=== PATIENT | female | born 1965 | race Caucasian/White ===

== ENCOUNTER 2016-10-11 08:23 | Observation (INO) | payer SELFPAY ==
[~2016-10-11] VITALS: Ht 160 cm; Wt 58.4 kg
[2016-10-11] VITALS (7 sets, daily range): BP systolic 93–131; BP diastolic 50–85; PULSE 52–71; RESP 16–18; TEMP 97.6–98.2; O2SAT 96–100
[~2016-10-11 08:23] MED LIST: ONDA1TAB16 SL; Z.0.NO CURRENT MEDS
[2016-10-11] MEDS ORDERED: SOMA250T PO (08:40)
[2016-10-11] MEDS ORDERED: DIAZ2 PO (08:40)
[2016-10-11] MEDS ORDERED: HYDR-3111 PO (08:40)
[2016-10-11] MEDS ORDERED: ONDANSETRON HCL 4 MG/2 ML VIAL IV PUSH ONE ×2 (09:00→15:45)
--- NOTE | 2016-10-11 09:23 | PD ---
HPI Chief Complaint: Abdominal Pain Time Seen by Provider: 08:40 Travel History International Travel<30 days: Yes Contact w/Intl Traveler<30days: Yes Name of Country Traveled to: [facility] [place] 1 WEEK AGO Traveled to known affect area: No History of Present Illness HPI 50yo F with no PMH presents to the ED with c/o right sided abdominal pain for 1 week. States she was at a resort in [place] and they started her on ciprofloxacin. Pt states she has had similar pain before intermittently for 7- 8 months. Never had imaging. +Nausea. Denies any fever, vomiting, dysuria, hematuria, diarrhea, chest pain, sob, focal weakness or numbness, vaginal bleeding. Pt has not had menstrual period for 2 years. PSH cholecystectomy. PFSH Past Medical History Fibromyalgia: Yes Musculoskeletal: Yes ("bulging discs") Migraines: Yes Tetanus Vaccination: Unknown ?: Not Menopausal: Yes Tubal Ligation: Yes Past Surgical History Cholecystectomy: Yes Gynecologic Surgery: Yes (breast implants) Social History Alcohol Use: Yes (2-3 x/ month) Tobacco Use: No Substance Use: No Allergies-Medications (Allergen,Severity, Reaction): Coded Allergies: Codeine (Verified Allergy, Mild, ITCHING, 10/11/16) Reported Meds & Prescriptions Reported Meds & Active Scripts Active Reported Valium (Diazepam) 2 Mg Tab Unknown Dose PO BID PRN Soma (Carisoprodol) 250 Mg Tab 150 Mg PO QID PRN Vicodin (Hydrocodone-Acetaminophen) 5-300 Mg Tab 1 Tab PO Q4H PRN Review of Systems Except as stated in HPI: all other systems reviewed are Neg Physical Exam Narrative GENERAL: 50yo F in mild distress. SKIN: Focused skin assessment warm/dry. HEAD: Atraumatic. Normocephalic. CARDIOVASCULAR: Regular rate and rhythm. No murmur appreciated. RESPIRATORY: No accessory muscle use. Clear to auscultation. Breath sounds equal bilaterally. GASTROINTESTINAL: Abdomen soft, +TTP RUQ, RLQ, right flank. Suprapubic region. PELVIC: Small amount of white vaginal discharge, looks physiologic. No bleeding. No CMT tenderness. No adnexal mass palpated. BACK: CVA tenderness on right. MUSCULOSKELETAL: No obvious deformities. No clubbing. No cyanosis. No edema. NEUROLOGICAL: Awake and alert. No obvious cranial nerve deficits. Motor grossly within normal limits. Normal speech. PSYCHIATRIC: Appropriate mood and affect; insight and judgment normal. Data Data Last Documented VS Vital Signs Date Time Temp Pulse Resp B/P Pulse Ox O2 Delivery O2 Flow Rate FiO2 10/11/16 13:00 54 16 119/58 98 Room Air 10/11/16 08:25 98.2 Orders Complete Blood Count With Diff (10/11/16 08:49) Comprehensive Metabolic Panel (10/11/16 08:49) Lipase (10/11/16 08:49) Prothrombin Time / Inr (Pt) (10/11/16 08:49) Act Partial Throm Time (Ptt) (10/11/16 08:49) Urinalysis - C+S If Indicated (10/11/16 08:49) Ct Abd/Pel W Iv Contrast(Rout) (10/11/16 08:49) Ondansetron Inj (Zofran Inj) (10/11/16 09:00) Morphine Inj (Morphine Inj) (10/11/16 09:30) Iohexol 350 Inj (Omnipaque 350 Inj) (10/11/16 11:36) Morphine Inj (Morphine Inj) (10/11/16 13:00) Gc And Chlamydia Pcr (10/11/16 13:02) Wet Prep Profile (10/11/16 13:02) Us Pelvis Comp W Transvaginal (10/11/16 ) Ondansetron Inj (Zofran Inj) (10/11/16 15:45) Prochlorperazine Inj (Compazine Inj) (10/11/16 16:30) (Nf) Carisoprodol (Soma) (10/11/16 16:30) Place In Observation (10/11/16 ) Code Status (10/11/16 16:24) Vital Signs (Adult) Q4H (10/11/16 16:24) Activity Oob Ad Batsheva (10/11/16 16:24) Intake + Output MALINDA.QSHIFT (10/11/16 16:24) Notify Dr: Other (10/11/16 16:24) Sodium Chlor 0.9% 1000 Ml Inj (Ns 1000 M (10/11/16 16:24) Sodium Chloride 0.9% Flush (Ns Flush) (10/11/16 16:30) Sodium Chloride 0.9% Flush (Ns Flush) (10/11/16 21:00) Acetaminophen (Tylenol) (10/11/16 16:30) Ondansetron Inj (Zofran Inj) (10/11/16 16:30) Complete Blood Count With Diff (10/12/16 06:00) Creatine Kinase (Cpk) (10/11/16 16:24) Creatine Kinase (Cpk) (10/11/16 22:24) Troponin I (10/11/16 16:24) Troponin I (10/11/16 22:24) Scd Bilateral/Knee High MALINDA.BID (10/11/16 16:24) Naloxone Inj (Narcan Inj) (10/11/16 16:30) Docusate Sodium-Senna (Dyan-Colace) (10/11/16 21:00) Magnesium Hydroxide Liq (Milk Of Magnesi (10/11/16 16:30) Sennosides (Senokot) (10/11/16 16:30) Bisacodyl Supp (Dulcolax Supp) (10/11/16 16:30) Lactulose Liq (Lactulose Liq) (10/11/16 16:30) Pantoprazole Inj (Protonix Inj) (10/11/16 21:00) Sucralfate Liq (Carafate Liq) (10/11/16 21:00) Admit Order (Ed Use Only) (10/11/16 16:25) Consult Gastroenterology (10/11/16 ) Drug Screen, Random Urine (10/11/16 16:26) Labs Laboratory Tests Test 10/11/16 10/11/16 10/11/16 10/11/16 01:36 09:00 09:10 13:17 Total Creatine Kinase 48 U/L Troponin I LESS THAN 0.02 NG/ML White Blood Count 6.4 TH/MM3 Red Blood Count 4.88 MIL/MM3 Hemoglobin 14.2 GM/DL Hematocrit 42.8 % Mean Corpuscular Volume 87.7 FL Mean Corpuscular Hemoglobin 29.2 PG Mean Corpuscular Hemoglobin 33.3 % Concent Red Cell Distribution Width 13.4 % Platelet Count 286 TH/MM3 Mean Platelet Volume 8.0 FL Neutrophils (%) (Auto) 58.8 % Lymphocytes (%) (Auto) 29.5 % Monocytes (%) (Auto) 7.2 % Eosinophils (%) (Auto) 3.7 % Basophils (%) (Auto) 0.8 % Neutrophils # (Auto) 3.8 TH/MM3 Lymphocytes # (Auto) 1.9 TH/MM3 Monocytes # (Auto) 0.5 TH/MM3 Eosinophils # (Auto) 0.2 TH/MM3 Basophils # (Auto) 0.1 TH/MM3 CBC Comment DIFF FINAL Differential Comment Prothrombin Time 10.8 SEC Prothromb Time International 1.0 RATIO Ratio Activated Partial 28.0 SEC Thromboplast Time Sodium Level 141 MEQ/L Potassium Level 4.1 MEQ/L Chloride Level 107 MEQ/L Carbon Dioxide Level 25.7 MEQ/L Anion Gap 8 MEQ/L Blood Urea Nitrogen 16 MG/DL Creatinine 0.78 MG/DL Estimat Glomerular Filtration 78 ML/MIN Rate Random Glucose 82 MG/DL Calcium Level 8.6 MG/DL Total Bilirubin 0.5 MG/DL Aspartate Amino Transf 48 U/L (AST/SGOT) Alanine Aminotransferase 52 U/L (ALT/SGPT) Alkaline Phosphatase 95 U/L Total Protein 6.5 GM/DL Albumin 3.6 GM/DL Lipase 226 U/L Urine Color LIGHT-YELLOW Urine Turbidity CLEAR Urine pH 5.5 Urine Specific [place] 1.008 Urine Protein NEG mg/dL Urine Glucose (UA) NEG mg/dL Urine Ketones NEG mg/dL Urine Occult Blood NEG Urine Nitrite NEG Urine Bilirubin NEG Urine Urobilinogen LESS THAN 2.0 MG/DL Urine Leukocyte Esterase NEG Urine RBC LESS THAN 1 /hpf Urine WBC 1 /hpf Urine Squamous Epithelial 2 /hpf Cells Urine Bacteria RARE /hpf Urine Mucus FEW /lpf Microscopic Urinalysis Comment CULT NOT INDICATED Urine Opiates Screen NEG Urine Barbiturates Screen NEG Urine Amphetamines Screen NEG Urine Benzodiazepines Screen POS Urine Cocaine Screen NEG Urine Cannabinoids Screen POS Clue Cells (Wet Prep) NONE SEEN Vaginal Trichomonas (Wet Prep) NONE SEEN Vaginal Yeast (Wet Prep) NONE SEEN Chlamydia trachomatis DNA NOT DETECTED (PCR) Neisseria gonorrhoeae DNA NOT DETECTED (PCR) MDM Medical Decision Making Medical Screen Exam Complete: Yes Emergency Medical Condition: Yes Differential Diagnosis pyelonephritis vs. colitis vs. IBS vs. appendicitis vs. nephrolithiasis Narrative Course 50yo F with right sided abdominal pain for 1 week. Pt has had similar pain on and off for 7-8 months. Abdomen is soft, but pt is tender more in the right flank area so morphine and zofran given. Labs reviewed, no leukocytosis. AST mildly elevated. Lipase normal. UA negative. CTa/p showed a dilated tubular structure in right adnexa, probably hydrosalpinx. Tubo ovarian abscess cannot be excluded although no significant inflammatory changes. Appendix not definitely visualized but no inflammatory changes adjacent to cecum. No free air or free fluid. No bowel obstruction. Mild intrahepatic and extrahepatic bile or ductal dilation. Distal common bile duct 9mm in maximum diameter. I discussed with GI Dr. Martínez who states she can follow up as outpatient, likely needs MRCP. Normal bilirubin. Ordered mandatory referral for GI. Pt' s pain is not epigastric but more right of umbilicus. Pelvic exam performed and there is a small amount of white vaginal discharge, appears physiologic. Wet prep negative. US pelvis normal. Pain improved with morphine. Upon discharge, pt started vomiting and given zofran. Vomit is green. Pt reevaluated after zofran and is still vomiting. Ordered compazine. Will admit for intractable vomiting and GI consult. Discussed with Dr. Hart and accepted to his service. Diagnosis Primary Impression: Intractable vomiting Qualified Code: R11.2 - Intractable vomiting with nausea, unspecified vomiting type Admitting Information Admitting Physician Requests: Observation Additional Instructions: Please follow up with GI or [facility] as an outpatient. Med/Other Pt SpecificInfo: No Change to Meds Gail Mae DO Oct 11, 2016 09:23
[2016-10-11 09:25] LABS: AUTOMATED NEUTROPHIL # 3.8 TH/MM3 (1.8-7.7); BASOPHIL # 0.1 TH/MM3 (0-0.2); BASOPHIL % 0.8 % (0.0-2.0); EOSINOPHIL # 0.2 TH/MM3 (0-0.4); EOSINOPHIL % 3.7 % (0.0-4.0); HEMATOCRIT 42.8 % (35.0-46.0); HEMO FLAGS DIFF FINAL; LYMPH % 29.5 % (9.0-44.0); LYMPHOCYTE # 1.9 TH/MM3 (1.0-4.8); MEAN CELL VOLUME 87.7 FL (80.0-100.0); MEAN CORPUSCULAR HEMOGLOBIN 29.2 PG (27.0-34.0); MEAN CORPUSCULAR HGB CONC 33.3 % (32.0-36.0); MONO % 7.2 % (0.0-8.0); NEUT % 58.8 % (16.0-70.0); PLATELET COUNT 286 TH/MM3 (150-450); RED BLOOD COUNT 4.88 MIL/MM3 (4.00-5.30); RED CELL DISTRIBUTION WIDTH 13.4 % (11.6-17.2); WHITE BLOOD COUNT 6.4 TH/MM3 (4.0-11.0)
[2016-10-11] MEDS ORDERED: MORPHINE SULFATE 8 MG/ML INJ IV PUSH ONE (09:30)
[2016-10-11 09:38] LABS: PROTHROMBIN TIME - PATIENT 10.8 SEC (9.8-11.6)
[2016-10-11 09:50] LABS: ANION GAP 8 MEQ/L (5-15); AST (GOT) 48 U/L (15-37); BICARBONATE 25.7 MEQ/L (21.0-32.0); BLOOD UREA NITROGEN 16 MG/DL (7-18); CHLORIDE 107 MEQ/L (98-107); GLOMERULAR FILTRATION RATE 78 ML/MIN (>89); POTASSIUM 4.1 MEQ/L (3.5-5.1); SODIUM (NA) 141 MEQ/L (136-145)
[2016-10-11 09:51] LABS: ALT (GPT) 52 U/L (10-53)
[2016-10-11 09:52] LABS: BACTERIA, URINE RARE /hpf; BLOOD, URINE NEG (NEG); COMMENT (UR) CULT NOT INDICATED; CULTURE IF INDICATED CULT NOT INDICATED; GLUCOSE,URINE NEG (NEG); KETONE, URINE NEG (NEG); MUCUS URINE FEW /lpf (OCC); NITRITE,URINE NEG (NEG); PH, URINE 5.5 (5.0-8.5); SQUAMOUS EPITHELIAL CELL URINE 2 /hpf (0-5); URINE COLOR LIGHT-YELLOW (YELLW/STRAW)
[2016-10-11 09:53] LABS: ALKALINE PHOSPHATASE 95 U/L (45-117); TOTAL BILIRUBIN ADULT 0.5 MG/DL (0.2-1.0)
[2016-10-11] MEDS ORDERED: IOHEXOL 350 MG/ML 10 ML VIAL (for RAD DIAG) IV ONE (11:36)
--- NOTE | 2016-10-11 12:25 | RADRPT ---
EXAM DATE/TIME: 10/11/2016 11:35 [facility] COMPARISON: No previous studies available for comparison. INDICATIONS : Right lower quadrant pain, nausea, vomiting and loss of appetite. IV CONTRAST: 96 cc Omnipaque 350 (iohexol) IV ORAL CONTRAST: No oral contrast ingested. RADIATION DOSE: 4.81 CTDIvol (mGy) MEDICAL HISTORY : None SURGICAL HISTORY : Tubal ligation. Breast implants ENCOUNTER: Initial ACUITY: 1 day PAIN SCALE: 10/10 LOCATION: Right lower quadrant abdomen TECHNIQUE: Volumetric scanning of the abdomen and pelvis was performed. Using automated exposure control and ad justment of the mA and/or kV according to patient size, radiation dose was kept as low as reasonably achievable to obtain optimal diagnostic quality images. FINDINGS: The limited portion of the lung base visualized is clear. There is mild prominence of the intrahepatic biliary system. The patient is post cholecystectomy. The distal common bile but measures 9 mm in maximum dimension. No mass is seen within the hepatic parenc hyma. The spleen, pancreas, adrenal glands and kidneys are within normal limits. The abdominal aorta is normal in caliber. No retroperitoneal adenopathy is identified. The visualized loops of small and large bowel in the upper abdomen are unremarkable. Imaging through the pelvis demonstrates a dilated tubular structure in the right adnexa suggesting hy drosalpinx. No free fluid is seen within the pelvis. No iliac or inguinal adenopathy is present. The visualized bony structures are grossly intact. CONCLUSION: 1. There is a dilated tubular structure in the right adnexa probably representing a hydrosalpinx. Tub o-ovarian abscess cannot be excluded however I do not see significant inflammatory changes. 2. The appendix is not definitively visualized however, there are no inflammatory changes adjacent to cecum. 3. No free air or free fluid identified. No findings to indicate bowel obstruction. 4. Mild intrahepatic and extrahepatic bile or ductal dilation. Curt Ventura MD on October 11, 2016 at 12:17 Board Certified Radiologist. This report was verified electronically.
[2016-10-11] MEDS ORDERED: MORPHINE SULFATE 4 MG/ML INJ IV PUSH ONE (13:00)
--- NOTE | 2016-10-11 14:05 | RADRPT ---
EXAM DATE/TIME: 10/11/2016 13:24 [facility] COMPARISON: No previous studies available for comparison. INDICATIONS : Abscess. Right adnexal mass seen on CT. Right pelvic pain. MEDICAL HISTORY : Alzheimer's Right pelvic pain. SURGICAL HISTORY : Cholecystectomy. ENCOUNTER: Initial ACUITY: 1 week PAIN SCORE: 3/10 LOCATION: Bilateral pelvis MEASUREMENTS: UTERUS: 6.7 x 3.9 x 2.6 cm ENDOMETRIAL STRIPE: 3 mm RIGHT OVARY: 1.2 x 3.0 x 1.4 cm LEFT OVARY: 2.7 x 1.4 x 1.7 cm FINDINGS: UTERUS: The myometrium has homogeneous echotexture without mass. Nabothian cysts noted. RIGHT OVARY: Ovary contains no mass or significant cystic lesion. Dominant follicle measures 8 mm. LEFT OVARY: Ovary contains no mass or significant cystic lesion. MISCELLANEOUS: No free fluid. CONCLUSION: 1. Normal pelvic sonogram. Jesus White MD on October 11, 2016 at 14:02 Board Certified Radiologist. This report was verified electronically.
[2016-10-11 16:25] LABS: CHLAMYDIA PCR NOT DETECTED (NOT DETECT); NEISSERIA PCR NOT DETECTED (NOT DETECT)
[2016-10-11] MEDS ORDERED: PROCHLORPERAZINE INJ 10 MG/2 ML VIAL IV PUSH ONE (16:30)
[2016-10-11] MEDS ORDERED: BISACODYL 10 MG SUPP RECTAL PRN (16:30)
[2016-10-11] MEDS ORDERED: CARISOPRODOL PO PRN (16:30)
[2016-10-11] MEDS ORDERED: ONDANSETRON HCL 4 MG/2 ML VIAL IVP PRN (16:30)
[2016-10-11] MEDS ORDERED: SENNOSIDES 8.6 MG TAB PO PRN (16:30)
[2016-10-11] MEDS ORDERED: NALOXONE HCL 0.4 MG/ML AMP IV PRN (16:30)
[2016-10-11] MEDS ORDERED: ACETAMINOPHEN 325 MG TAB PO PRN (16:30)
[2016-10-11] MEDS ORDERED: MAGNESIUM HYDROXIDE SUSP 30 ML CUP PO PRN (16:30)
[2016-10-11] MEDS ORDERED: LACTULOSE SYRUP 20 GM/30 ML CUP PO PRN (16:30)
[2016-10-11] MEDS ORDERED: SODIUM CHLORIDE 0.9% FLUSH 10 ML FLUSH IV FLUSH PRN (16:30)
--- NOTE | 2016-10-11 17:13 | PD.CONS ---
HPI History of Present Illness This is a 50 year old female who presented to the ER for evaluation of nausea/ vomiting/abdominal pain. She has been having intermittent abdominal pain for the past 7 months. This is an intermittent sharp pain in her RLQ that radiates to her back and is aggravated by movement. She also has intermittent nausea, but only occasionally vomits. She has associated chills, but denies any fevers. She denies any heartburn, reflux, diarrhea, constipation, melena, or hematochezia. She seems to get the nausea 2-3 times a week. She can't really say how often she is having the abdominal pain. She originally stated it was intermittent for the past 7 months, but states then stated it was constant, but everyone says there is nothing wrong so she just "lives with it." This latest episode began last Monday while in [place]. She denies any suspicious food or sick contacts. She did not drink the water. She was seen by the resort physician and was started on Cipro. She denies any improvement in her symptoms with the cipro, but states the vomiting did stop. She has not had a menstrual cycle in several years. She had cervical cancer when she was [age] that was treated with cryosurgery. She does report a small amount vaginal discharge since starting cipro, but states she always has a little bit of thick white vaginal discharge while on cipro. Abdomen/Pelvis CT (10/11/16)-----> 1. There is a dilated tubular structure in the right adnexa probably representing a hydrosalpinx. Tubo-ovarian abscess cannot be excluded however I do not see significant inflammatory changes. 2. The appendix is not definitively visualized however, there are no inflammatory changes adjacent to cecum. 3. No free air or free fluid identified. No findings to indicate bowel obstruction. 4. Mild intrahepatic and extrahepatic bile or ductal dilation. Pelvis Ultrasound (10/11/16)----> 1. Normal pelvic sonogram. The patient has a hx of gallstones and underwent a cholecystectomy more than 10 years ago. She takes Naproxen once a day since last week. She denies any history of PUD. PFSH Past Medical History Hx Cervical cancer Fibromyalgia Past Surgical History Tubal ligation Cryosurgery for cervical cancer Tonsillectomy Cholecystectomy ORIF right wrist Breast augmentation Coded Allergies: Codeine (Verified Allergy, Mild, ITCHING, 10/11/16) Medications Allergies Coded Allergies Type Severity Reaction Last Updated Verified Codeine Allergy Mild ITCHING 10/11/16 Yes Active Scripts Medications Dose Route/Sig Days Date Category Valium (Diazepam) 2 Mg Tab Unknown Dose PO BID PRN 10/11/16 Reported Soma (Carisoprodol) 250 Mg Tab 150 Mg PO QID PRN 10/11/16 Reported Vicodin (Hydrocodone-Acetaminophen) 5-300 Mg Tab 1 Tab PO Q4H PRN 10/11/16 Reported Family History Mother had breast and lung cancer. Father from [place] Social History No ETOH. Denies any tobacco use No illicit drugs Review of Systems Constitutional: COMPLAINS OF: Fatigue, Weight loss, Chills, DENIES: Fever Respiratory: DENIES: Cough Cardiovascular: DENIES: Chest pain Gastrointestinal: COMPLAINS OF: Abdominal pain, Nausea, Vomiting, DENIES: Black stools, Bloody stools, Constipation, Diarrhea, Anorexia, Heartburn, Hematemesis Musculoskeletal: COMPLAINS OF: Joint pain, Muscle aches Hematologic/lymphatic: DENIES: Bruising Neurologic: DENIES: Headache Psychiatric: DENIES: Confusion GI Exam Vitals I&O Vital Signs Date Time Temp Pulse Resp B/P Pulse Ox O2 Delivery O2 Flow Rate FiO2 10/11/16 16:30 97.6 68 16 118/58 100 Room Air 10/11/16 13:00 54 16 119/58 98 Room Air 10/11/16 08:40 71 16 120/63 99 Room Air 10/11/16 08:25 98.2 71 18 127/68 99 Imaging Last Impressions Abdomen/Pelvis CT 10/11/16 0849 Signed Impressions: Service Date/Time: Tuesday, October 11, 2016 11:35 - CONCLUSION: 1. There is a dilated tubular structure in the right adnexa probably representing a hydrosalpinx. Tubo-ovarian abscess cannot be excluded however I do not see significant inflammatory changes. 2. The appendix is not definitively visualized however, there are no inflammatory changes adjacent to cecum. 3. No free air or free fluid identified. No findings to indicate bowel obstruction. 4. Mild intrahepatic and extrahepatic bile or ductal dilation. Curt Ventura MD Pelvis Ultrasound 10/11/16 0000 Signed Impressions: Service Date/Time: Tuesday, October 11, 2016 13:24 - CONCLUSION: 1. Normal pelvic sonogram. Jesus F. Tocci, MD Laboratory Test 10/11/16 10/11/16 10/11/16 09:00 09:10 13:17 White Blood Count 6.4 TH/MM3 Red Blood Count 4.88 MIL/MM3 Hemoglobin 14.2 GM/DL Hematocrit 42.8 % Mean Corpuscular Volume 87.7 FL Mean Corpuscular Hemoglobin 29.2 PG Mean Corpuscular Hemoglobin 33.3 % Concent Red Cell Distribution Width 13.4 % Platelet Count 286 TH/MM3 Mean Platelet Volume 8.0 FL Neutrophils (%) (Auto) 58.8 % Lymphocytes (%) (Auto) 29.5 % Monocytes (%) (Auto) 7.2 % Eosinophils (%) (Auto) 3.7 % Basophils (%) (Auto) 0.8 % Neutrophils # (Auto) 3.8 TH/MM3 Lymphocytes # (Auto) 1.9 TH/MM3 Monocytes # (Auto) 0.5 TH/MM3 Eosinophils # (Auto) 0.2 TH/MM3 Basophils # (Auto) 0.1 TH/MM3 CBC Comment DIFF FINAL Differential Comment Prothrombin Time 10.8 SEC Prothromb Time International 1.0 RATIO Ratio Activated Partial 28.0 SEC Thromboplast Time Sodium Level 141 MEQ/L Potassium Level 4.1 MEQ/L Chloride Level 107 MEQ/L Carbon Dioxide Level 25.7 MEQ/L Anion Gap 8 MEQ/L Blood Urea Nitrogen 16 MG/DL Creatinine 0.78 MG/DL Estimat Glomerular Filtration 78 ML/MIN Rate Random Glucose 82 MG/DL Calcium Level 8.6 MG/DL Total Bilirubin 0.5 MG/DL Aspartate Amino Transf 48 U/L (AST/SGOT) Alanine Aminotransferase 52 U/L (ALT/SGPT) Alkaline Phosphatase 95 U/L Total Protein 6.5 GM/DL Albumin 3.6 GM/DL Lipase 226 U/L Urine Color LIGHT-YELLOW Urine Turbidity CLEAR Urine pH 5.5 Urine Specific [place] 1.008 Urine Protein NEG mg/dL Urine Glucose (UA) NEG mg/dL Urine Ketones NEG mg/dL Urine Occult Blood NEG Urine Nitrite NEG Urine Bilirubin NEG Urine Urobilinogen LESS THAN 2.0 MG/DL Urine Leukocyte Esterase NEG Urine RBC LESS THAN 1 /hpf Urine WBC 1 /hpf Urine Squamous Epithelial 2 /hpf Cells Urine Bacteria RARE /hpf Urine Mucus FEW /lpf Microscopic Urinalysis Comment CULT NOT INDICATED Clue Cells (Wet Prep) NONE SEEN Vaginal Trichomonas (Wet Prep) NONE SEEN Vaginal Yeast (Wet Prep) NONE SEEN Chlamydia trachomatis DNA NOT DETECTED (PCR) Neisseria gonorrhoeae DNA NOT DETECTED (PCR) Physical Examination HEENT: Normocephalic; atraumatic; no jaundice. CHEST: CTA CARDIAC: RRR ABDOMEN: Soft, nondistended, RLQ tenderness; no hepatosplenomegaly; bowel sounds are present in all four quadrants. EXTREMITIES: No clubbing, cyanosis, or edema. SKIN: Normal; no rash; no jaundice. JOURNEYMAN MOLDER: No focal deficits; alert and oriented times three. Assessment and Plan Plan ASSESSMENT: - Abdominal pain. Pt reports intermittent RLQ pain described as sharp pain radiating to back x 7 months. This last episode began last Monday, while in [place]. She has chills, but denies any fevers/diarrhea. Denies suspicious food/sick contacts. She was seen by resort physician and started on Flagyl. She has continued to have pain and therefore came to the ER for further evaluation. Abdomen/Pelvis CT (10/11/16)-----> 1. There is a dilated tubular structure in the right adnexa probably representing a hydrosalpinx. Tubo-ovarian abscess cannot be excluded however I do not see significant inflammatory changes. 2. The appendix is not definitively visualized however , there are no inflammatory changes adjacent to cecum. 3. No free air or free fluid identified. No findings to indicate bowel obstruction. 4. Mild intrahepatic and extrahepatic bile or ductal dilation. Her pain is in her RLQ, which correlates with the abnormal fallopian tube. She does have mild intrahepatic and extrahepatic bile duct dilation, but the CBD is 9mm and her LFTs are essentially normal other than mildly elevated AST at 48. This is most likely related to her past cholecystectomy. Lipase is normal. This is most likely a CORRESPONDENCE SECTION SUPERVISOR associated pain. We will get MRCP to make sure there are no retained stones, but she would also benefit from CORRESPONDENCE SECTION SUPERVISOR evaluation. - Nausea, ? related to above process. No hx of PUD. No reflux/heartburn. She has been taking Naproxen once a day since last week. - Hydrosalpinx right. CT with dilated tubular structure in the right adnexa probably representing a hydrosalpinx. Tubo-ovarian abscess cannot be excluded however I do not see significant inflammatory changes. She had cervical cancer when she was [age] that was treated with cryosurgery. She does report a small amount vaginal discharge since starting cipro, but states she always has a little bit of thick white vaginal discharge while on cipro. Pelvis Ultrasound (10/11/16)----> 1. Normal pelvic sonogram. Clue cells, trichomonas, and yeast not seen. She has a hx of tubal ligation 30 years ago. Consult CORRESPONDENCE SECTION SUPERVISOR for RLQ pain/hydrosalpinx. PLAN: - Clear liquids - MRCP - Cont. PPI - CORRESPONDENCE SECTION SUPERVISOR consult - CBC, CMP in am - Supportive care - Further recommendations to follow based on results of above - Pt seen and examined by Dr. Martínez and myself and this note is written on his behalf Elizabeth Gold Oct 11, 2016 17:13
[2016-10-11] MEDS: SODIUM CHLOR 0.9% 1000 ML INJ 1,000 ML IV SCH (17:24)
--- NOTE | 2016-10-11 17:43 | HHI.HP ---
HPI Service [facility] Hospitalists Primary Care Physician Admission Diagnosis Intractable vomiting, dilated common bile duct Diagnoses: Chief Complaint: Nausea and vomiting Right sided abdominal pain Travel History International Travel<30 Days: Yes Contact w/Intl Traveler <30 Da: Yes Name of Country Traveled to: [facility] 1 WEEK AGO Traveled to Known Affected Are: No History of Present Illness This is a 50 yo female with PMHX of fibromyalgia and degenerative disc disease who has had a prior cholecystectomy and tubal ligation who presents to [facility] ED with complaints of right sided abdominal pain for the past 7-8 months that has increased in severity over the past week. Patient reports a constant dull ache in the right side of her abdomen that became a much more severe burning, twisting pain over the past week with associated nausea and intractable vomiting in the past 24 hours. She went to the clinic 7-8 months ago initially and was treated with a 10 day course of Cipro without much improvement. She performs martial arts regularly and thought the ache was due to a pulled muscle. She went to a resort in [facility] one week ago and began having severe right sided abdominal pain with an associated fever of 102 and N/ V. She was seen by a physician at the resort and given an injection and started on Cipro which improved the vomiting. She states she was careful to only eat cooked food and avoided drinking any water. Last night the pain worsened and she vomited once and today she has had intractable nonbloody bilious vomiting 10+ times. She reports the abdominal pain is worse with movement and after vomiting. She denies any worsening or improvement after a meal. She denies any heartburn. She reports normal BM yesterday. She denies any recent fever or chills. She denies any hematuria, dysuria, diarrhea, constipation, hematochezia or melena. She has not had a menstrual cycle in 2 years. She reports a previous h/o cervical cancer s/p cryosurgery. CT of the abdomen/pelvis obtained in the ED reveals mild prominence of the intrahepatic biliary system, distal common bile duct measuring 9mm dilated tubular structure in the right adnexa, poorly visualized appendix and no free air or free fluid and no findings to indicate bowel obstruction. Follow up pelvic US was normal. Pelvic exam in ED normal except for small amount of white vaginal discharge. Wet prep negative. Review of Systems Except as stated in HPI: all other systems reviewed are Neg Past Family Social History Past Medical History Fibromyalgia "Bulging discs"/DDD spine H/o cervical cancer s/p cryosurgery Past Surgical History Cholecystectomy secondary to gallstones Breast augmentation Tubal ligation Tonsillectomy ORIF right wrist and subsequent removal of hardware Cryosurgery Reported Medications Valium (Diazepam) 2 Mg Tab Unknown Dose PO BID PRN Soma (Carisoprodol) 250 Mg Tab 150 Mg PO QID PRN Vicodin (Hydrocodone-Acetaminophen) 5-300 Mg Tab 1 Tab PO Q4H PRN Allergies: Coded Allergies: Codeine (Verified Allergy, Mild, ITCHING, 10/11/16) Active Ordered Medications Current Medications Medications (Trade) Dose Ordered Sig/Maria Del Rosario Route Start Time Stop Time Status Last Admin (NS 1000 ml Inj) 1,000 ml @ 100 mls/hr Q10H IV 10/11/16 16:24 (NS Flush) 2 ml UNSCH PRN IV FLUSH 10/11/16 16:30 (NS Flush) 2 ml BID IV FLUSH 10/11/16 21:00 (Tylenol) 650 mg Q4H PRN PO 10/11/16 16:30 (Zofran Inj) 4 mg Q6H PRN IVP 10/11/16 16:30 (Narcan Inj) 0.4 mg UNSCH PRN IV 10/11/16 16:30 (Dyan-Colace) 1 tab BID PO 10/11/16 21:00 (Milk Of Magnesia Liq) 30 ml Q12H PRN PO 10/11/16 16:30 (Senokot) 17.2 mg Q12H PRN PO 10/11/16 16:30 (Dulcolax Supp) 10 mg DAILY PRN RECTAL 10/11/16 16:30 (Lactulose Liq) 30 ml DAILY PRN PO 10/11/16 16:30 (Protonix Inj) 40 mg Q12HR IV PUSH 10/11/16 21:00 (Carafate Liq) 1 gm ACHS PO 10/11/16 21:00 Family History Father, age 55, [place] Mother, , breast cancer, lung cancer Grandmother, DM, dementia Social History Patient denies any tobacco use or illicit drug use. Reports occasional alcohol consumption 2-3x/month. She had one alcoholic beverage on Monday. Physical Exam Vital Signs Vital Signs Date Time Temp Pulse Resp B/P Pulse Ox O2 Delivery O2 Flow Rate FiO2 10/11/16 16:30 97.6 68 16 118/58 100 Room Air 10/11/16 13:00 54 16 119/58 98 Room Air 10/11/16 08:40 71 16 120/63 99 Room Air 10/11/16 08:25 98.2 71 18 127/68 99 Physical Exam GENERAL: This is a well-nourished, well-developed patient, in no apparent distress. Awake and alert. SKIN: No rashes, ecchymoses or lesions. Cool and dry. HEAD: Atraumatic. Normocephalic. No temporal or scalp tenderness. EYES: Pupils equal round and reactive. Extraocular motions intact. No scleral icterus. No injection or drainage. ENT: Nose without bleeding, purulent drainage or septal hematoma. Throat without erythema, tonsillar hypertrophy or exudate. Uvula midline. Airway patent. NECK: Trachea midline. No JVD or lymphadenopathy. Supple, nontender, no meningeal signs. CARDIOVASCULAR: Regular rate and rhythm without murmurs, gallops, or rubs. RESPIRATORY: Clear to auscultation. Breath sounds equal bilaterally. No wheezes , rales, or rhonchi. GASTROINTESTINAL: Abdomen soft, nondistended. No hepato-splenomegaly, or palpable masses. (+)tenderness to palpation of RUQ and RLQ. Mild guarding noted. No rigidity. (+)BS x 4. MUSCULOSKELETAL: Extremities without clubbing, cyanosis, or edema. No joint tenderness, effusion, or edema noted. No calf tenderness. NEUROLOGICAL: Awake and alert. Able to move all extremities. No focal neurologic findings noted. Normal speech. Laboratory Laboratory Tests Test 10/11/16 10/11/16 10/11/16 09:00 09:10 13:17 White Blood Count 6.4 Red Blood Count 4.88 Hemoglobin 14.2 Hematocrit 42.8 Mean Corpuscular Volume 87.7 Mean Corpuscular Hemoglobin 29.2 Mean Corpuscular Hemoglobin 33.3 Concent Red Cell Distribution Width 13.4 Platelet Count 286 Mean Platelet Volume 8.0 Neutrophils (%) (Auto) 58.8 Lymphocytes (%) (Auto) 29.5 Monocytes (%) (Auto) 7.2 Eosinophils (%) (Auto) 3.7 Basophils (%) (Auto) 0.8 Neutrophils # (Auto) 3.8 Lymphocytes # (Auto) 1.9 Monocytes # (Auto) 0.5 Eosinophils # (Auto) 0.2 Basophils # (Auto) 0.1 CBC Comment DIFF FINAL Differential Comment Prothrombin Time 10.8 Prothromb Time International 1.0 Ratio Activated Partial 28.0 Thromboplast Time Sodium Level 141 Potassium Level 4.1 Chloride Level 107 Carbon Dioxide Level 25.7 Anion Gap 8 Blood Urea Nitrogen 16 Creatinine 0.78 Estimat Glomerular Filtration 78 Rate Random Glucose 82 Calcium Level 8.6 Total Bilirubin 0.5 Aspartate Amino Transf 48 (AST/SGOT) Alanine Aminotransferase 52 (ALT/SGPT) Alkaline Phosphatase 95 Total Protein 6.5 Albumin 3.6 Lipase 226 Urine Color LIGHT-YELLOW Urine Turbidity CLEAR Urine pH 5.5 Urine Specific Mcalister 1.008 Urine Protein NEG Urine Glucose (UA) NEG Urine Ketones NEG Urine Occult Blood NEG Urine Nitrite NEG Urine Bilirubin NEG Urine Urobilinogen LESS THAN 2.0 Urine Leukocyte Esterase NEG Urine RBC LESS THAN 1 Urine WBC 1 Urine Squamous Epithelial 2 Cells Urine Bacteria RARE Urine Mucus FEW Microscopic Urinalysis Comment CULT NOT INDICATED Clue Cells (Wet Prep) NONE SEEN Vaginal Trichomonas (Wet Prep) NONE SEEN Vaginal Yeast (Wet Prep) NONE SEEN Chlamydia trachomatis DNA NOT DETECTED (PCR) Neisseria gonorrhoeae DNA NOT DETECTED (PCR) Result Diagram: 10/11/16 0900 10/11/16 0900 Imaging Last Impressions Abdomen/Pelvis CT 10/11/16 0849 Signed Impressions: Service Date/Time: Tuesday, October 11, 2016 11:35 - CONCLUSION: 1. There is a dilated tubular structure in the right adnexa probably representing a hydrosalpinx. Tubo-ovarian abscess cannot be excluded however I do not see significant inflammatory changes. 2. The appendix is not definitively visualized however, there are no inflammatory changes adjacent to cecum. 3. No free air or free fluid identified. No findings to indicate bowel obstruction. 4. Mild intrahepatic and extrahepatic bile or ductal dilation. Curt Ventura MD Pelvis Ultrasound 10/11/16 0000 Signed Impressions: Service Date/Time: Tuesday, October 11, 2016 13:24 - CONCLUSION: 1. Normal pelvic sonogram. Jesus White MD Assessment and Plan Assessment and Plan 50 yo female with PMHX of fibromyalgia and degenerative disc disease who has had a prior cholecystectomy and tubal ligation who presents to [facility] ED with complaints of right sided abdominal pain for the past 7-8 months that has increased in severity over the past week. Right sided abdominal pain - CT abd/pelvis, personally reviewed, reveals mild prominence of the intrahepatic biliary system, distal common bile duct measuring 9mm dilated tubular structure in the right adnexa, poorly visualized appendix and no free air or free fluid and no findings to indicate bowel obstruction. - Pelvic US, personally reviewed, reveals normal sonogram - Patient is afebrile. White count is normal. UA not indicative of UTI. Normal bilirubin. Mildly elevated AST of 48. Possible gastroparesis/opioid use. Hold narcotics. - Consult GI - Zofran prn N/V - pain management prn - keep NPO for now - IVF - Protonix and Carafate ordered - obtain urine drug screen - repeat labs in am Fibromyalgia and DDD lumbar spine - hold opioids as may be contributing to possible gastroparesis - Soma prn - Tylenol prn DVT prophylaxis - Bilateral EYAL/SCDs Discussed with patient and Dr. Hart Seen in her bedroom discussed with patient and her , also with nurse she states GI specialist came to see the patient but wants a Crop Or Grain Farmworker consult was placed, does not believe is a gastric issue will follow recommendations by Specialists. will continue in Observation until complete the work up by specialists at this time stable. Code Status Full Code Discussed Condition With discussed with patient and her in the room. Rosenda Rodriguez Oct 11, 2016 17:43 Danny Bazan MD Oct 11, 2016 18:55
[2016-10-11 18:08] LABS: AMPHETAMINE, URINE NEG (NEG); BARBITURATES, URINE NEG (NEG); COCAINE, URINE NEG (NEG)
[2016-10-11 19:32] LABS: CREATINE KINASE 47 U/L (26-192)
[2016-10-11] MEDS: SODIUM CHLORIDE 0.9% FLUSH 10 ML FLUSH IV FLUSH SCH (20:53)
[2016-10-11] MEDS: PANTOPRAZOLE SODIUM 40 MG VIAL IV PUSH SCH (20:54)
[2016-10-11] MEDS: SUCRALFATE 1 GM/10 ML CUP PO SCH (20:54)
[2016-10-11] MEDS: DOCUSATE SODIUM 50 MG/SENNA 8.6 MG TAB PO SCH (20:55)
[2016-10-12] MEDS: SODIUM CHLOR 0.9% 1000 ML INJ 1,000 ML IV SCH (02:24)
[2016-10-12 03:01] LABS: CREATINE KINASE 48 U/L (26-192)
[2016-10-12 03:36] VITALS: BP 110/57; PULSE 69; RESP 18; TEMP 98.1; O2SAT 98
[2016-10-12 05:14] LABS: AUTOMATED NEUTROPHIL # 3.5 TH/MM3 (1.8-7.7); BASOPHIL % 0.6 % (0.0-2.0); EOSINOPHIL # 0.2 TH/MM3 (0-0.4); EOSINOPHIL % 3.7 % (0.0-4.0); HEMATOCRIT 36.1 % (35.0-46.0); HEMO FLAGS DIFF FINAL; LYMPH % 23.4 % (9.0-44.0); LYMPHOCYTE # 1.2 TH/MM3 (1.0-4.8); MEAN CELL VOLUME 86.5 FL (80.0-100.0); MEAN CORPUSCULAR HEMOGLOBIN 29.7 PG (27.0-34.0); MEAN CORPUSCULAR HGB CONC 34.4 % (32.0-36.0); MONO % 6.6 % (0.0-8.0); NEUT % 65.7 % (16.0-70.0); PLATELET COUNT 254 TH/MM3 (150-450); RED BLOOD COUNT 4.17 MIL/MM3 (4.00-5.30); RED CELL DISTRIBUTION WIDTH 13.7 % (11.6-17.2); WHITE BLOOD COUNT 5.3 TH/MM3 (4.0-11.0)
[2016-10-12 05:30] LABS: ALT (GPT) 273 U/L (10-53); ANION GAP 7 MEQ/L (5-15); AST (GOT) 255 U/L (15-37); BICARBONATE 26.9 MEQ/L (21.0-32.0); BLOOD UREA NITROGEN 13 MG/DL (7-18); CHLORIDE 112 MEQ/L (98-107); GLOMERULAR FILTRATION RATE 110 ML/MIN (>89); POTASSIUM 3.8 MEQ/L (3.5-5.1); SODIUM (NA) 146 MEQ/L (136-145)
[2016-10-12 05:33] LABS: ALKALINE PHOSPHATASE 150 U/L (45-117); TOTAL BILIRUBIN ADULT 0.6 MG/DL (0.2-1.0)
[2016-10-12] MEDS: SUCRALFATE 1 GM/10 ML CUP PO SCH ×4 (06:50→20:49)
[2016-10-12 07:28] VITALS: BP 125/62; PULSE 59; RESP 18; TEMP 97.8; O2SAT 100
[2016-10-12] MEDS: DOCUSATE SODIUM 50 MG/SENNA 8.6 MG TAB PO SCH ×2 (09:00→20:49)
[2016-10-12] MEDS: SODIUM CHLORIDE 0.9% FLUSH 10 ML FLUSH IV FLUSH SCH ×2 (09:13→20:49)
[2016-10-12] MEDS: PANTOPRAZOLE SODIUM 40 MG VIAL IV PUSH SCH ×2 (09:13→20:49)
--- NOTE | 2016-10-12 09:41 | RADRPT ---
EXAM DATE/TIME: 10/12/2016 08:28 [place] COMPARISON: CT ABDOMEN & PELVIS W CONTRAST, October 11, 2016, 11:35. INDICATIONS : Abdominal pain. MEDICAL HISTORY : Cervical ca. SURGICAL HISTORY : Tubal ligation. Cholecystectomy. ENCOUNTER: Initial ACUITY: 2 day PAIN SCORE: 3/10 LOCATION: abdomen TECHNIQUE: Multiplanar, multisequence magnetic resonance imaging of the abdomen was performed. High-resolution 3D dataset was utilized to reconstruct maximum-intensity projection (MIP) images. FINDINGS: INTRAHEPATIC BILE DUCTS: There is dilatation of the central intrahepatic biliary ducts. EXTRAHEPATIC BILE DUCTS: The common bile duct measures 8 mm, this is mildly distended. No stone or filling defect is identifie d. GALLBLADDER: The patient is status post cholecystectomy. Susceptibility artifact from clips are seen. LIVER: There is a 1.7 cm bilobed mass seen in the left lobe of the liver. On this noncontrast MRI examinatio n, this likely represents cyst or hemangioma. PANCREAS: The main pancreatic duct is normal in size. There is no significant anatomical variant. Signal inte nsity is within normal limits. No mass is visualized on this non-contrast exam. OTHER: The remaining visualized structures demonstrate no acute abnormality on this non-contrast exam. Bilat eral breast implants are present. CONCLUSION: Mild dilatation of the biliary system. This may reflect a reservoir phenomenon following cholecystect meryl. No filling defect is seen. Robin Call MD on October 12, 2016 at 9:26 Board Certified Radiologist. This report was verified electronically.
--- NOTE | 2016-10-12 09:45 | HHI.PR ---
Subjective Remarks Follow-up for abdominal pain. Patient has had right lower quadrant pain with intermittent episodes of nausea and vomiting for the past several months. She has been prescribed Cipro multiple times for nausea and vomiting, denies ever having any associated diarrhea. She states that the nausea, vomiting, and abdominal pain and acutely worsened over the past 3 days. The pain is a bit better today, but still present. She has some whitish vaginal discharge after recent bout with Cipro, which she suspects is a yeast infection. She denies any dysuria. She was able to tolerate some clear liquids yesterday. She had her gallbladder out in 2002. Her is at bedside, and states that with these episodes of nausea and vomiting, they eat the same food and he does not get any symptoms. She does follow with a mattress filling machine tender, Dr. Egan, as outpatient. Objective Vitals Vital Signs Date Time Temp Pulse Resp B/P Pulse Ox O2 Delivery O2 Flow Rate FiO2 10/12/16 07:28 97.8 59 18 125/62 100 10/12/16 03:36 98.1 69 18 110/57 98 10/11/16 23:40 98.1 66 18 108/50 97 10/11/16 21:04 98.2 68 18 131/85 98 10/11/16 18:07 97.6 52 18 93/54 96 10/11/16 16:30 97.6 68 16 118/58 100 Room Air 10/11/16 13:00 54 16 119/58 98 Room Air I/O 10/11/16 10/11/16 10/11/16 10/12/16 10/12/16 10/12/16 07:00 15:00 23:00 07:00 15:00 23:00 Intake Total 1680 ml Balance 1680 ml Intake Oral 480 ml IV Total 1200 ml # Voids 2 Result Diagram: 10/12/16 0418 10/12/16 0418 Imaging Last Impressions Abdomen/Pelvis CT 10/11/16 0849 Signed Impressions: Service Date/Time: Tuesday, October 11, 2016 11:35 - CONCLUSION: 1. There is a dilated tubular structure in the right adnexa probably representing a hydrosalpinx. Tubo-ovarian abscess cannot be excluded however I do not see significant inflammatory changes. 2. The appendix is not definitively visualized however, there are no inflammatory changes adjacent to cecum. 3. No free air or free fluid identified. No findings to indicate bowel obstruction. 4. Mild intrahepatic and extrahepatic bile or ductal dilation. Curt Ventura MD Pelvis Ultrasound 10/11/16 0000 Signed Impressions: Service Date/Time: Tuesday, October 11, 2016 13:24 - CONCLUSION: 1. Normal pelvic sonogram. Jesus White MD Objective Remarks GENERAL: Well-developed well-nourished. In no acute distress. SKIN: Warm and dry. No lesions noted. HEENT: Normocephalic. Pupils equal and round. Mucous membranes pink and moist. CARDIOVASCULAR: Regular rate and rhythm. No murmur appreciated. RESPIRATORY: No accessory muscle use. Clear to auscultation. Breath sounds equal bilaterally. GASTROINTESTINAL: Abdomen soft, nondistended. Small, tender, palpable mass in the right lower quadrant. Decreased Bowel sounds. MUSCULOSKELETAL: No obvious deformities. No clubbing or cyanosis. No edema. NEUROLOGICAL: Awake and alert. No focal neurological deficits. Moves upper and lower extremities spontaneously. Normal speech. PSYCHIATRIC: Appropriate mood and affect; insight and judgment normal. A/P Assessment and Plan 50 yo female with PMHX of fibromyalgia and degenerative disc disease who has had a prior cholecystectomy and tubal ligation who presents to [facility] ED with complaints of right sided abdominal pain for the past 7-8 months that has increased in severity over the past week. Right sided abdominal pain: Secondary to possible gynecologic mass vs gastroparesis/opioid use vs biliary obstruction vs other Reviewed: CT abd/pelvis reveals mild prominence of the intrahepatic biliary system, distal common bile duct measuring 9mm dilated tubular structure in the right adnexa, poorly visualized appendix. Pelvic US essentially unremarkable. Afebrile. White count is normal. UA not indicative of UTI. Normal bilirubin. Elevation of AST, ALT, alkaline phosphatase. Vaginal exam performed in the ED which showed no clue cells, Trichomonas, yeast, chlamydia, or diarrhea. - Consulted GI, recommended MRCP, EGD, and BEATER ROOM HELPER evaluation - Consulted gynecology - Zofran prn N/V - pain management with IV morphine - Diet per GI - IVF - Protonix and Carafate ordered Fibromyalgia and DDD lumbar spine - hold opioids as may be contributing to possible gastroparesis - Soma prn - Tylenol prn DVT prophylaxis - Bilateral EYAL/SCDs Nnamdi Serna Oct 12, 2016 09:45
[2016-10-12 10:17] VITALS: BP 129/62; PULSE 59; RESP 18; TEMP 97.8; O2SAT 100
--- NOTE | 2016-10-12 10:32 | PD.CONS ---
History of Present Illness Service WANT AD CLERK hospitalists Consult Requested By Elizabeth Gold (GI) Reason for Consult Right lower quadrant pain, abnormal CT finding Primary Care Physician Diagnoses: History of Present Illness Patient is a 50-year-old who was admitted to the hospital for further workup of intractable vomiting and chronic abdominal pain. NEWS DEPARTMENT INTERN service was consulted due to abnormal CT findings. The patient states she has lower abdominal pain for greater than 7 months, without significant interval change. She denies vaginal bleeding, discharge, pelvic pressure, incontinence, dysuria. The only NEWS DEPARTMENT INTERN complaint she has at this time is dyspareunia, which she said this is chronic since menopause 2 years ago. Her WANT AD CLERK is Dr. Egan, last office visit 2 years ago. At that time she had a Pap with high-risk HPV testing which were both negative. NEWS DEPARTMENT INTERN history is otherwise notable for excision plus cryotherapy of stage IV cervical dysplasia in 1991 and bilateral tubal ligation in 1995. (Zeenat Torres MD R1) Review of Systems Except as stated in HPI: all other systems reviewed are Neg (Zeenat Torres MD R1) Past Family Social History Allergies: Coded Allergies: Codeine (Verified Allergy, Mild, ITCHING, 10/11/16) Physical Exam Vital Signs Vital Signs Date Time Temp Pulse Resp B/P Pulse Ox O2 Delivery O2 Flow Rate FiO2 10/12/16 10:17 97.8 59 18 129/62 100 10/12/16 07:28 97.8 59 18 125/62 100 10/12/16 03:36 98.1 69 18 110/57 98 10/11/16 23:40 98.1 66 18 108/50 97 10/11/16 21:04 98.2 68 18 131/85 98 10/11/16 18:07 97.6 52 18 93/54 96 10/11/16 16:30 97.6 68 16 118/58 100 Room Air 10/11/16 13:00 54 16 119/58 98 Room Air Physical Exam GENERAL: Well-nourished, well-developed female in no apparent distress CARDIOVASCULAR: Regular rate and rhythm without murmurs, gallops, or rubs. RESPIRATORY: Breath sounds equal bilaterally. No accessory muscle use. ABDOMEN/GI: Abdomen soft, nondistended. She is mildly tender to palpation in the right lower quadrant. Bowel sounds are normal. No suprapubic pain. GENITOURINARY: Deferred, exam in ED on 10/11 reported to be unremarkable EXTREMITIES: No cyanosis or edema, non-tender, without signs of DVT. Laboratory Laboratory Tests Test 10/11/16 10/11/16 10/12/16 13:17 18:45 04:18 Clue Cells (Wet Prep) NONE SEEN Vaginal Trichomonas (Wet Prep) NONE SEEN Vaginal Yeast (Wet Prep) NONE SEEN Chlamydia trachomatis DNA NOT DETECTED (PCR) Neisseria gonorrhoeae DNA NOT DETECTED (PCR) Total Creatine Kinase 47 Troponin I LESS THAN 0.02 White Blood Count 5.3 Red Blood Count 4.17 Hemoglobin 12.4 Hematocrit 36.1 Mean Corpuscular Volume 86.5 Mean Corpuscular Hemoglobin 29.7 Mean Corpuscular Hemoglobin 34.4 Concent Red Cell Distribution Width 13.7 Platelet Count 254 Mean Platelet Volume 7.8 Neutrophils (%) (Auto) 65.7 Lymphocytes (%) (Auto) 23.4 Monocytes (%) (Auto) 6.6 Eosinophils (%) (Auto) 3.7 Basophils (%) (Auto) 0.6 Neutrophils # (Auto) 3.5 Lymphocytes # (Auto) 1.2 Monocytes # (Auto) 0.4 Eosinophils # (Auto) 0.2 Basophils # (Auto) 0.0 CBC Comment DIFF FINAL Differential Comment Sodium Level 146 Potassium Level 3.8 Chloride Level 112 Carbon Dioxide Level 26.9 Anion Gap 7 Blood Urea Nitrogen 13 Creatinine 0.58 Estimat Glomerular Filtration 110 Rate Random Glucose 72 Calcium Level 8.2 Total Bilirubin 0.6 Aspartate Amino Transf 255 (AST/SGOT) Alanine Aminotransferase 273 (ALT/SGPT) Alkaline Phosphatase 150 Total Protein 5.3 Albumin 2.9 (Zeenat Torres MD R1) Result Diagram: 10/12/16 0418 10/12/16 0418 Imaging Last Impressions Cholangiopancreatography MRI 10/12/16 0000 Signed Impressions: Service Date/Time: Wednesday, October 12, 2016 08:28 - CONCLUSION: Mild dilatation of the biliary system. This may reflect a reservoir phenomenon following cholecystectomy. No filling defect is seen. Robin Call MD Abdomen/Pelvis CT 10/11/16 0849 Signed Impressions: Service Date/Time: Tuesday, October 11, 2016 11:35 - CONCLUSION: 1. There is a dilated tubular structure in the right adnexa probably representing a hydrosalpinx. Tubo-ovarian abscess cannot be excluded however I do not see significant inflammatory changes. 2. The appendix is not definitively visualized however, there are no inflammatory changes adjacent to cecum. 3. No free air or free fluid identified. No findings to indicate bowel obstruction. 4. Mild intrahepatic and extrahepatic bile or ductal dilation. Curt Ventura MD Pelvis Ultrasound 10/11/16 0000 Signed Impressions: Service Date/Time: Tuesday, October 11, 2016 13:24 - CONCLUSION: 1. Normal pelvic sonogram. Jesus White MD (Zeenat Torres MD R1) Assessment and Plan Assessment and Plan 50-year-old admitted for workup of intractable vomiting and right lower quadrant pain, the latter of which is chronic. Her medical history was reviewed in detail and notable for bilateral tubal ligation 1996 as well as dyspareunia which is chronic. Exam is benign. WANT AD CLERK is Dr. Egan, with whom she follows regularly. NEWS DEPARTMENT INTERN team was consulted due to abnormal CT findings, which were reviewed in addition to the pelvic ultrasound which was noted to be normal. CT report reviewed: notable for dilated tubular structure in the right adnexa, no inflammatory changes. Pelvic ultrasound performed thereafter did not show any abnormality of the adnexa. Given patient's history of tubal ligation and normal pelvic ultrasound findings , there is low likelihood to be a gynecologic etiology contributing to her chronic pain. It is recommended that patient follows up per routine as outpatient with Dr. Egan upon discharge as she is due for a routine well woman exam. This was discussed and he showed up with the patient who agrees with this current plan of care. Thank you for the consult, as it was a pleasure to assist in the care of Mrs. Lamas. WANT AD CLERK service will sign off at this time, please notify us if there are further clinical questions. Discussed with Dr. Marquez. Discussed Condition With Dr. Marquez Discharge Planning Per Primary team (Zeenat Torres MD R1) Physician Attestation Agree with above. F/u with routine outpatient clerical receptionist care. (Georgiana Marquez MD) Zeenat Torres MD R1 Oct 12, 2016 10:32 Georgiana Marquez MD Oct 12, 2016 12:58
[2016-10-12] MEDS: SODIUM CHLOR 0.45% 1000 ML INJ 1,000 ML IV SCH ×2 (13:29→21:55)
--- NOTE | 2016-10-12 13:59 | HHI.PR ---
Subjective Remarks Went for EGD, however not done , will have to go later again today. Says she is still nauseated, she has right upper annd mid right abdominal pain, nonradiating. no vomiting. Denies diarrhea or constipation. No fever or chills. Objective Vitals Vital Signs Date Time Temp Pulse Resp B/P Pulse Ox O2 Delivery O2 Flow Rate FiO2 10/12/16 10:17 97.8 59 18 129/62 100 10/12/16 07:28 97.8 59 18 125/62 100 10/12/16 03:36 98.1 69 18 110/57 98 10/11/16 23:40 98.1 66 18 108/50 97 10/11/16 21:04 98.2 68 18 131/85 98 10/11/16 18:07 97.6 52 18 93/54 96 10/11/16 16:30 97.6 68 16 118/58 100 Room Air I/O 10/11/16 10/11/16 10/11/16 10/12/16 10/12/16 10/12/16 07:00 15:00 23:00 07:00 15:00 23:00 Intake Total 1680 ml Balance 1680 ml Intake Oral 480 ml IV Total 1200 ml # Voids 2 Result Diagram: 10/12/16 0418 10/12/16 0418 Imaging Last Impressions Cholangiopancreatography MRI 10/12/16 0000 Signed Impressions: Service Date/Time: Wednesday, October 12, 2016 08:28 - CONCLUSION: Mild dilatation of the biliary system. This may reflect a reservoir phenomenon following cholecystectomy. No filling defect is seen. Robin Call MD Abdomen/Pelvis CT 10/11/16 0849 Signed Impressions: Service Date/Time: Tuesday, October 11, 2016 11:35 - CONCLUSION: 1. There is a dilated tubular structure in the right adnexa probably representing a hydrosalpinx. Tubo-ovarian abscess cannot be excluded however I do not see significant inflammatory changes. 2. The appendix is not definitively visualized however, there are no inflammatory changes adjacent to cecum. 3. No free air or free fluid identified. No findings to indicate bowel obstruction. 4. Mild intrahepatic and extrahepatic bile or ductal dilation. Curt Ventura MD Pelvis Ultrasound 10/11/16 0000 Signed Impressions: Service Date/Time: Tuesday, October 11, 2016 13:24 - CONCLUSION: 1. Normal pelvic sonogram. Jesus White MD Objective Remarks GENERAL: Pleasant 50 yo F, well-developed well-nourished, doesn't appear in acute distress. SKIN: Warm and dry. No lesions noted. HEENT: Normocephalic. Pupils equal and round. Mucous membranes pink and moist. CARDIOVASCULAR: Regular rate and rhythm. No murmur appreciated. RESPIRATORY: No accessory muscle use. Clear to auscultation. Breath sounds equal bilaterally. GASTROINTESTINAL: Abdomen soft, nondistended, no rigidity, decreased bowel sounds. Small, tender, palpable mass in the right lower quadrant. MUSCULOSKELETAL: No obvious deformities. No clubbing or cyanosis. No edema. NEUROLOGICAL: Awake and alert. No focal neurological deficits. Moves upper and lower extremities spontaneously. Normal speech. PSYCHIATRIC: Appropriate mood and affect; insight and judgment normal. A/P Assessment and Plan 50 yo female with PMHX of fibromyalgia and degenerative disc disease who has had a prior cholecystectomy and tubal ligation who presents to [facility] ED with complaints of right sided abdominal pain for the past 7-8 months that has increased in severity over the past week. Right sided abdominal pain: Secondary to possible gynecologic mass vs gastroparesis/opioid use vs biliary obstruction vs other CT abd/pelvis reviewed , reveals mild prominence of the intrahepatic biliary system, distal common bile duct measuring 9mm dilated tubular structure in the right adnexa, poorly visualized appendix. Pelvic US reviewed unremarkable. Afebrile. WBC is normal. UA not indicative of UTI. Normal bilirubin. Elevation of AST, ALT, alkaline phosphatase. Vaginal exam performed in the ED which showed no clue cells, Trichomonas, yeast, chlamydia, or diarrhea. Consulted GI, recommended MRCP, EGD, and SHIPS EQUIPMENT ENGINEER evaluation Consulted gynecology Zofran prn N/V Pain management with IV morphine NPO for now as plan for EGD later. Advance diet per GI recommendations. IVF Protonix and Carafate ordered Fibromyalgia and DDD lumbar spine Hold opioids as may be contributing to possible gastroparesis Soma prn Tylenol prn DVT prophylaxis - Bilateral EYAL/SCDs Discussed with the patient, nurse, at bedside Janna Tena MD Oct 12, 2016 13:59
[2016-10-12] MEDS ORDERED: PROPOFOL 200 MG/20 ML AMP IV ONE (15:21)
--- NOTE | 2016-10-12 15:28 | HHI.GIFU ---
Subjective Remarks Immediate postop note: EGD with biopsy Indication: nausea and vomiting, abdominal pain Meds: MAC Findings: Esophagus distal irregular Z line Biopsy Stomach: mild gastritis. Bx taken Duodenum Normal Objective Vitals I&O Vital Signs Date Time Temp Pulse Resp B/P Pulse Ox O2 Delivery O2 Flow Rate FiO2 10/12/16 10:17 97.8 59 18 129/62 100 10/12/16 07:28 97.8 59 18 125/62 100 10/12/16 03:36 98.1 69 18 110/57 98 10/11/16 23:40 98.1 66 18 108/50 97 10/11/16 21:04 98.2 68 18 131/85 98 10/11/16 18:07 97.6 52 18 93/54 96 10/11/16 16:30 97.6 68 16 118/58 100 Room Air I/O 10/11/16 10/11/16 10/11/16 10/12/16 10/12/16 10/12/16 07:00 15:00 23:00 07:00 15:00 23:00 Intake Total 1680 ml Balance 1680 ml Intake Oral 480 ml IV Total 1200 ml # Voids 2 Laboratory Laboratory Tests Test 10/11/16 10/12/16 18:45 04:18 Total Creatine Kinase 47 Troponin I LESS THAN 0.02 White Blood Count 5.3 Red Blood Count 4.17 Hemoglobin 12.4 Hematocrit 36.1 Mean Corpuscular Volume 86.5 Mean Corpuscular Hemoglobin 29.7 Mean Corpuscular Hemoglobin 34.4 Concent Red Cell Distribution Width 13.7 Platelet Count 254 Mean Platelet Volume 7.8 Neutrophils (%) (Auto) 65.7 Lymphocytes (%) (Auto) 23.4 Monocytes (%) (Auto) 6.6 Eosinophils (%) (Auto) 3.7 Basophils (%) (Auto) 0.6 Neutrophils # (Auto) 3.5 Lymphocytes # (Auto) 1.2 Monocytes # (Auto) 0.4 Eosinophils # (Auto) 0.2 Basophils # (Auto) 0.0 CBC Comment DIFF FINAL Differential Comment Sodium Level 146 Potassium Level 3.8 Chloride Level 112 Carbon Dioxide Level 26.9 Anion Gap 7 Blood Urea Nitrogen 13 Creatinine 0.58 Estimat Glomerular Filtration 110 Rate Random Glucose 72 Calcium Level 8.2 Total Bilirubin 0.6 Aspartate Amino Transf 255 (AST/SGOT) Alanine Aminotransferase 273 (ALT/SGPT) Alkaline Phosphatase 150 Total Protein 5.3 Albumin 2.9 Physical Exam HEENT: Pupils round and reactive to light; normocephalic; atraumatic; no jaundice. Throat is clear. NECK: Neck is supple, no JVD, no lymphadenopathy. CHEST: Chest is clear to auscultation and percussion. CARDIAC: Regular rate and rhythm with no murmur gallop or rubs. ABDOMEN: Soft, nondistended, nontender; no hepatosplenomegaly; bowel sounds are present in all four quadrants. EXTREMITIES: No clubbing, cyanosis, or edema. SKIN: Normal; no rash; no jaundice. FIBER PICKER: No focal deficits; alert and oriented times three. Assessment and Plan Plan ASSESSMENT: - Abdominal pain. Pt reports intermittent RLQ pain described as sharp pain radiating to back x 7 months. This last episode began last Monday, while in [place]. She has chills, but denies any fevers/diarrhea. Denies suspicious food/sick contacts. She was seen by resort physician and started on Flagyl. She has continued to have pain and therefore came to the ER for further evaluation. Abdomen/Pelvis CT (10/11/16)-----> 1. There is a dilated tubular structure in the right adnexa probably representing a hydrosalpinx. Tubo-ovarian abscess cannot be excluded however I do not see significant inflammatory changes. 2. The appendix is not definitively visualized however , there are no inflammatory changes adjacent to cecum. 3. No free air or free fluid identified. No findings to indicate bowel obstruction. 4. Mild intrahepatic and extrahepatic bile or ductal dilation. Her pain is in her RLQ, which correlates with the abnormal fallopian tube. She does have mild intrahepatic and extrahepatic bile duct dilation, but the CBD is 9mm and her LFTs are essentially normal other than mildly elevated AST at 48. This is most likely related to her past cholecystectomy. Lipase is normal. This is most likely a SHOE FOLDER associated pain. We will get MRCP to make sure there are no retained stones, but she would also benefit from SHOE FOLDER evaluation. - Nausea, ? related to above process. No hx of PUD. No reflux/heartburn. She has been taking Naproxen once a day since last week. - Hydrosalpinx right. CT with dilated tubular structure in the right adnexa probably representing a hydrosalpinx. Tubo-ovarian abscess cannot be excluded however I do not see significant inflammatory changes. She had cervical cancer when she was [age] that was treated with cryosurgery. She does report a small amount vaginal discharge since starting cipro, but states she always has a little bit of thick white vaginal discharge while on cipro. Pelvis Ultrasound (10/11/16)----> 1. Normal pelvic sonogram. Clue cells, trichomonas, and yeast not seen. She has a hx of tubal ligation 30 years ago. Consult SHOE FOLDER for RLQ pain/hydrosalpinx. - EGD 10/12 Gastritis and GERD with possible Barretts PLAN: - Clear liquids - MRCP - Cont. PPI - SHOE FOLDER consult - CBC, CMP in am - Supportive care - Further recommendations to follow based on results of above - PPI daily Carson Martínez MD Oct 12, 2016 15:27
[2016-10-12 15:45] VITALS: BP 126/65; PULSE 69; RESP 20; O2SAT 100
[2016-10-12] MEDS: MORPHINE SULFATE 4 MG/ML INJ IV PUSH PRN ×2 (16:12→22:00)
[2016-10-12 20:00] VITALS: BP 121/65; PULSE 78; RESP 21; TEMP 97; O2SAT 100
[2016-10-13] VITALS (8 sets, daily range): BP systolic 96–132; BP diastolic 54–81; PULSE 62–78; RESP 14–20; TEMP 96.1–98; O2SAT 96–100
[2016-10-13] MEDS: SUCRALFATE 1 GM/10 ML CUP PO SCH ×4 (06:17→20:53)
[2016-10-13 07:18] LABS: ANION GAP 8 MEQ/L (5-15); AST (GOT) 101 U/L (15-37); BICARBONATE 24.7 MEQ/L (21.0-32.0); BLOOD UREA NITROGEN 9 MG/DL (7-18); CHLORIDE 111 MEQ/L (98-107); GLOMERULAR FILTRATION RATE 96 ML/MIN (>89); POTASSIUM 4.2 MEQ/L (3.5-5.1); SODIUM (NA) 144 MEQ/L (136-145)
[2016-10-13 07:19] LABS: ALT (GPT) 192 U/L (10-53)
[2016-10-13 07:21] LABS: ALKALINE PHOSPHATASE 143 U/L (45-117); TOTAL BILIRUBIN ADULT 0.6 MG/DL (0.2-1.0)
[2016-10-13] MEDS ORDERED: MIDAZOLAM HCL 2 MG/2 ML VIAL ONE (07:44)
[2016-10-13] MEDS ORDERED: DEXAMETHASONE SOD PHOS 4 MG/ML VIAL ONE (07:44)
[2016-10-13] MEDS ORDERED: FAMOTIDINE 20 MG/2 ML VIAL ONE (07:44)
[2016-10-13] MEDS ORDERED: fentaNYL CITRATE 250 MCG/5 ML AMP ONE (07:46)
[2016-10-13] MEDS ORDERED: GLYCOPYRROLATE 0.4 MG/2 ML VIAL IV ONE (08:03)
[2016-10-13] MEDS ORDERED: PROPOFOL 200 MG/20 ML AMP IV ONE (08:03)
[2016-10-13] MEDS ORDERED: IOHEXOL 350 MG/ML 100 ML BTL (for RAD DIAG) IV ONE (08:03)
[2016-10-13] MEDS ORDERED: NEOSTIGMINE 3 MG/3 ML SYR IV ONE (08:03)
[2016-10-13] MEDS ORDERED: ONDANSETRON HCL 4 MG/2 ML VIAL IV PUSH ONE (08:03)
--- NOTE | 2016-10-13 08:38 | HHI.GIFU ---
Subjective Remarks feels about the same, still RUQ pain, nausea, abdominal discomfort Objective Vitals I&O Vital Signs Date Time Temp Pulse Resp B/P Pulse Ox O2 Delivery O2 Flow Rate FiO2 10/13/16 07:05 98.0 68 14 105/66 100 10/13/16 04:13 97.8 78 20 108/62 98 10/13/16 01:07 98.0 69 20 96/54 99 10/12/16 22:17 18 10/12/16 20:00 97.0 78 21 121/65 100 10/12/16 15:45 69 20 126/65 100 10/12/16 15:41 74 18 118/67 97 10/12/16 15:31 75 18 133/67 98 10/12/16 15:21 97.5 80 18 127/71 97 10/12/16 10:17 97.8 59 18 129/62 100 I/O 10/12/16 10/12/16 10/12/16 10/13/16 10/13/16 10/13/16 07:00 15:00 23:00 07:00 15:00 23:00 Intake Total 1680 ml 300 ml 750 ml Balance 1680 ml 300 ml 750 ml Intake Oral 480 ml IV Total 1200 ml 750 ml Other 300 ml # Voids 2 6 Laboratory Laboratory Tests Test 10/13/16 06:15 Sodium Level 144 Potassium Level 4.2 Chloride Level 111 Carbon Dioxide Level 24.7 Anion Gap 8 Blood Urea Nitrogen 9 Creatinine 0.65 Estimat Glomerular Filtration 96 Rate Random Glucose 81 Calcium Level 8.4 Total Bilirubin 0.6 Aspartate Amino Transf 101 (AST/SGOT) Alanine Aminotransferase 192 (ALT/SGPT) Alkaline Phosphatase 143 Total Protein 5.6 Albumin 3.1 Physical Exam HEENT: Pupils round and reactive to light; normocephalic; atraumatic; no jaundice. Throat is clear. NECK: Neck is supple, no JVD, no lymphadenopathy. CHEST: Chest is clear to auscultation and percussion. CARDIAC: Regular rate and rhythm with no murmur gallop or rubs. ABDOMEN: Soft, nondistended, mild RUQ tender; no hepatosplenomegaly; bowel sounds are present in all four quadrants. EXTREMITIES: No clubbing, cyanosis, or edema. SKIN: Normal; no rash; no jaundice. RFID SPECIALIST: No focal deficits; alert and oriented times three. Assessment and Plan Plan ASSESSMENT: - Abdominal pain. Pt reports intermittent RLQ pain described as sharp pain radiating to back x 7 months. This last episode began last Monday, while in [place]. She has chills, but denies any fevers/diarrhea. Denies suspicious food/sick contacts. She was seen by resort physician and started on Flagyl. She has continued to have pain and therefore came to the ER for further evaluation. Abdomen/Pelvis CT (10/11/16)-----> 1. There is a dilated tubular structure in the right adnexa probably representing a hydrosalpinx. Tubo-ovarian abscess cannot be excluded however I do not see significant inflammatory changes. 2. The appendix is not definitively visualized however , there are no inflammatory changes adjacent to cecum. 3. No free air or free fluid identified. No findings to indicate bowel obstruction. 4. Mild intrahepatic and extrahepatic bile or ductal dilation. Her pain is in her RLQ, which correlates with the abnormal fallopian tube. She does have mild intrahepatic and extrahepatic bile duct dilation, but the CBD is 9mm and her LFTs are essentially normal other than mildly elevated AST at 48. This is most likely related to her past cholecystectomy. Lipase is normal. This is most likely a WOOD REPATCHER associated pain. We will get MRCP to make sure there are no retained stones, but she would also benefit from WOOD REPATCHER evaluation. - Nausea, ? related to above process. No hx of PUD. No reflux/heartburn. She has been taking Naproxen once a day since last week. - Hydrosalpinx right. CT with dilated tubular structure in the right adnexa probably representing a hydrosalpinx. Tubo-ovarian abscess cannot be excluded however I do not see significant inflammatory changes. She had cervical cancer when she was [age] that was treated with cryosurgery. She does report a small amount vaginal discharge since starting cipro, but states she always has a little bit of thick white vaginal discharge while on cipro. Pelvis Ultrasound (10/11/16)----> 1. Normal pelvic sonogram. Clue cells, trichomonas, and yeast not seen. She has a hx of tubal ligation 30 years ago. Consult WOOD REPATCHER for RLQ pain/hydrosalpinx. - EGD 10/12 Gastritis and GERD with possible Barretts 10-13-16 doing ok still elevated LFTs, slight improvement, ERCP showed dilated CBD no filling defect with good drainage after sphincterotomy PLAN: - npo overnight - Cont. PPI - WOOD REPATCHER consult - LFTs in am - Supportive care - Further recommendations to follow based on results of above Cj Grimes MD Oct 13, 2016 08:38
--- NOTE | 2016-10-13 08:39 | RADRPT ---
EXAM DATE/TIME: 10/13/2016 08:06 [facility] COMPARISON: MRCP W/O CONTRAST, October 12, 2016, 8:28. INDICATIONS : Obstruction from stones, sphinceterotomy, balloon dilitation. FLUORO TIME: .44 minutes IMAGE COUNT: 3 CONTRAST: Instilled by Ordering Physician MEDICAL HISTORY : Stones SURGICAL HISTORY : None. ENCOUNTER: Initial ACUITY: 1 day PAIN SCORE: Non-responsive. LOCATION: Abdomen FINDINGS: An ERCP was performed by the ordering physician. The images demonstrate cannulation of the common bile duct with opacification with contrast material. No filling defects are visualized within the common bile duct and the central intrahepatic bile duct s are normal in size. Cholecystectomy clips are visualized. Balloon sweeps the common duct. CONCLUSION: ERCP as above. Robin Tracy MD on October 13, 2016 at 8:35 Board Certified Radiologist. This report was verified electronically.
[2016-10-13] MEDS ORDERED: *MEPERIDINE 25 MG INJ VIAL PERIprocedural Use ONLY ONE (09:06)
[2016-10-13] MEDS: PANTOPRAZOLE SODIUM 40 MG VIAL IV PUSH SCH ×2 (09:14→20:54)
[2016-10-13] MEDS ORDERED: DO NOT ADM ANY ANTICOAGULANT DRUGS PRN (09:45)
[2016-10-13] MEDS: DOCUSATE SODIUM 50 MG/SENNA 8.6 MG TAB PO SCH ×2 (09:58→20:58)
[2016-10-13] MEDS: SODIUM CHLORIDE 0.9% FLUSH 10 ML FLUSH IV FLUSH SCH ×2 (09:58→20:58)
[2016-10-13] MEDS: SODIUM CHLOR 0.45% 1000 ML INJ 1,000 ML IV SCH ×2 (10:04→21:45)
--- NOTE | 2016-10-13 10:10 | HHI.PR ---
Subjective Remarks Follow-up for abdominal pain. The patient is seen after ERCP today. RN and significant other at bedside. The patient states it's too early to know if her symptoms were improved with ERCP. She states that prior to ERCP she continued to have abdominal pain overnight. She states that morphine made her too sleepy and would rather not take that. She reports pain is improved with Demerol that she got with procedure today. She states that she maybe takes Vicodin once monthly as outpatient for pain. She states that she used marijuana once recently because someone told her it might help, which it did not, denies regular marijuana use. Per RN report, GI recommended nothing by mouth overnight and advance diet as tolerated tomorrow. Objective Vitals Vital Signs Date Time Temp Pulse Resp B/P Pulse Ox O2 Delivery O2 Flow Rate FiO2 10/13/16 09:25 97.7 64 16 120/72 98 Room Air 10/13/16 09:15 68 16 127/80 97 Room Air 10/13/16 09:00 75 16 137/82 96 Room Air 10/13/16 08:45 97.8 86 16 142/83 100 Nasal Cannula 3 10/13/16 07:05 98.0 68 14 105/66 100 10/13/16 04:13 97.8 78 20 108/62 98 10/13/16 01:07 98.0 69 20 96/54 99 10/12/16 22:17 18 10/12/16 20:00 97.0 78 21 121/65 100 10/12/16 15:45 69 20 126/65 100 10/12/16 15:41 74 18 118/67 97 10/12/16 15:31 75 18 133/67 98 10/12/16 15:21 97.5 80 18 127/71 97 10/12/16 10:17 97.8 59 18 129/62 100 I/O 10/12/16 10/12/16 10/12/16 10/13/16 10/13/16 10/13/16 07:00 15:00 23:00 07:00 15:00 23:00 Intake Total 1680 ml 300 ml 750 ml 400 ml Balance 1680 ml 300 ml 750 ml 400 ml Intake Oral 480 ml IV Total 1200 ml 750 ml 100 ml Other 300 ml 300 ml # Voids 2 6 0 Result Diagram: 10/12/16 0418 10/13/16 0615 Imaging Last Impressions GI Procedure 10/13/16 0000 Signed Impressions: Service Date/Time: September 08:06 - CONCLUSION: ERCP as above. Robin Tracy MD Cholangiopancreatography MRI 10/12/16 0000 Signed Impressions: Service Date/Time: Wednesday, October 12, 2016 08:28 - CONCLUSION: Mild dilatation of the biliary system. This may reflect a reservoir phenomenon following cholecystectomy. No filling defect is seen. Robin Call MD Abdomen/Pelvis CT 10/11/16 0849 Signed Impressions: Service Date/Time: Tuesday, October 11, 2016 11:35 - CONCLUSION: 1. There is a dilated tubular structure in the right adnexa probably representing a hydrosalpinx. Tubo-ovarian abscess cannot be excluded however I do not see significant inflammatory changes. 2. The appendix is not definitively visualized however, there are no inflammatory changes adjacent to cecum. 3. No free air or free fluid identified. No findings to indicate bowel obstruction. 4. Mild intrahepatic and extrahepatic bile or ductal dilation. Curt Ventura MD Pelvis Ultrasound 10/11/16 0000 Signed Impressions: Service Date/Time: Tuesday, October 11, 2016 13:24 - CONCLUSION: 1. Normal pelvic sonogram. Jesus White MD Objective Remarks GENERAL: Well-developed well-nourished. In no acute distress. SKIN: Warm and dry. No lesions noted. HEENT: Normocephalic. Pupils equal and round. Mucous membranes pink and moist. CARDIOVASCULAR: Regular rate and rhythm. No murmur appreciated. RESPIRATORY: No accessory muscle use. Clear to auscultation. Breath sounds equal bilaterally. GASTROINTESTINAL: Abdomen soft, nondistended. RLQ TTP. Decreased Bowel sounds. MUSCULOSKELETAL: No obvious deformities. No clubbing or cyanosis. No edema. NEUROLOGICAL: Awake and alert. No focal neurological deficits. Moves upper and lower extremities spontaneously. Normal speech. PSYCHIATRIC: Appropriate mood and affect; insight and judgment normal. A/P Assessment and Plan 50 yo female with PMHX of fibromyalgia and degenerative disc disease who has had a prior cholecystectomy and tubal ligation who presents to [facility] ED with complaints of right sided abdominal pain for the past 7-8 months that has increased in severity over the past week. Right sided abdominal pain: Secondary to possible gynecologic mass vs gastroparesis/opioid use vs biliary obstruction vs other Reviewed: CT abd/pelvis reveals mild prominence of the intrahepatic biliary system, distal common bile duct measuring 9mm dilated tubular structure in the right adnexa, poorly visualized appendix. Pelvic US essentially unremarkable. Afebrile. White count is normal. UA not indicative of UTI. Normal bilirubin. Elevation of AST, ALT, alkaline phosphatase; improving. Vaginal exam performed in the ED which showed no clue cells, Trichomonas, yeast, chlamydia, or diarrhea. MRCP showed moderate dilation of the biliary system. ERCP showed mild gastritis. - Consulted GI, performed ERCP, reportedly stone fragments removed - Consulted gynecology, doubts TAR WORKER etiology, recommended outpatient follow- up up, cleared from TAR WORKER perspective - Zofran prn N/V - pain management with Toradol - Diet per GI - IVF - Protonix and Carafate ordered - Counseled regarding narcotic and marijuana use, although doubt gastroparesis with infrequency of use Fibromyalgia and DDD lumbar spine - Soma prn - Tylenol prn - Tramadol prn DVT prophylaxis - Bilateral EYAL/SCDs Discharge Planning Per upper GI report, advance diet as tolerated tomorrow a.m. Anticipate discharge tomorrow if patient is tolerating diet. Nnamdi Serna Oct 13, 2016 10:10
[2016-10-13 12:40] LABS: FERRITIN 118 NG/ML (8-252); TRANSFERRIN IRON PROFILE 241 MG/DL (200-360)
--- NOTE | 2016-10-13 13:24 | MP ---
cc: CARSON MARTÍNEZ MD DATE OF SURGERY 10/12/2016 PROCEDURE Esophagogastroduodenoscopy with biopsy. INDICATIONS Nausea and vomiting and abdominal pain. PROCEDURE After informed consent was obtained, the patient was placed in the left side down position. He was sedated by the Anesthesia Service. After adequate sedation was achieved, the Pentax video gastroscope was inserted in the oropharynx and advanced through the esophagus, stomach and duodenum. It was then slowly withdrawn, examining the mucosal surfaces carefully. A retroflex examination was performed in the fundus and cardia. The scope was then straightened and a biopsy was obtained in the gastric antrum. The scope was then withdrawn through the distal esophagus and biopsies were taken at the GE junction for irregular Z-line. The scope was then withdrawn out the mouth and the procedure was terminated. She tolerated the procedure well and was returned to the recovery area in good condition. FINDINGS 1. The esophagus showed an irregular Z-line at the GE junction. Biopsy was obtained. 2. In the stomach antrum there was mild gastritis and a biopsy was obtained. 3. The duodenum was normal. IMPRESSION 1. GERD. 2. Gastritis. PLAN 1. The patient is to take a proton pump inhibitor daily . 2. We will review results of MRI scan for bile duct disease. Carson Martínez MD HHS/SSB /3:35 PM /1:23 PM
[2016-10-13] MEDS: traMADol HCL 50 MG TAB PO PRN ×2 (14:45→22:47)
[2016-10-14 05:00] VITALS: BP 114/69; PULSE 68; RESP 18; TEMP 96.4; O2SAT 95
[2016-10-14] MEDS: SUCRALFATE 1 GM/10 ML CUP PO SCH ×2 (06:00→11:34)
[2016-10-14 07:27] VITALS: BP 129/71; PULSE 77; RESP 17; TEMP 96.6; O2SAT 99
[2016-10-14 07:45] LABS: INDIRECT BILIRUBIN 0.5 MG/DL (0.0-0.8); TOTAL BILIRUBIN ADULT 0.6 MG/DL (0.2-1.0)
[2016-10-14] MEDS: PANTOPRAZOLE SODIUM 40 MG VIAL IV PUSH SCH (08:24)
[2016-10-14] MEDS: SODIUM CHLOR 0.45% 1000 ML INJ 1,000 ML IV SCH (08:24)
[2016-10-14] MEDS: SODIUM CHLORIDE 0.9% FLUSH 10 ML FLUSH IV FLUSH SCH (08:24)
[2016-10-14] MEDS: DOCUSATE SODIUM 50 MG/SENNA 8.6 MG TAB PO SCH (08:24)
[2016-10-14 10:11] VITALS: O2SAT 98
--- NOTE | 2016-10-14 10:24 | MR ---
cc: JALEEL SHAFER M.D. DATE 10/13/2016 DATE OF [address] Hart PROCEDURE ERCP with sphincterotomy and sweeping the duct with balloon INDICATION A 50-year-old lady who has dilated biliary tree, abdominal pain in the right upper quadrant and elevated liver function tests. PROCEDURE After informing the patient about the procedure and complications, consent was signed. The patient was placed on her abdomen after intubation and sedation. The scope was placed in the mouth, advanced under video guidance to the second portion of the duodenum. The ampulla was identified. Cannulation was performed without any difficulty. Cholangiogram showed significant dilation of the common bile duct tapered all the way to the ampulla. Not sure if there was a filling defect. Sphincterotomy was performed sweeping the duct with a 12 mm balloon did not reveal any stone, but there was significant dark bile and at the end of the case occluded cholangiogram was negative for filling defect and with good drainage of the duct after the sphincterotomy. FINDINGS 1. EGD limited exam normal. 2. Ampulla normal, possible stricture. 3. Common bile duct dilation. 4. No filling defects. RECOMMENDATIONS 1. N.p.o. until the morning, advance as tolerated. 2. Liver function tests tomorrow. 3. Further plan depends on how the patient is doing. MD ROMMEL Diop/CYDNEY /8:39 AM /10:24 AM
--- NOTE | 2016-10-14 11:29 | HHI.DS ---
Discharge Summary Admission Date Oct 11, 2016 at 16:28 Discharge Date: Oct 14, 2016 Admitting Diagnosis Intractable vomiting, dilated common bile duct (1) Abdominal pain ICD Code: R10.9 Diagnosis: Principal (2) Intractable vomiting ICD Code: R11.10 Diagnosis: Principal Procedures ercp/mrcp Brief History - From Admission This is a 50 yo female with PMHX of fibromyalgia and degenerative disc disease who has had a prior cholecystectomy and tubal ligation who presents to [facility] ED with complaints of right sided abdominal pain for the past 7-8 months that has increased in severity over the past week. Patient reports a constant dull ache in the right side of her abdomen that became a much more severe burning, twisting pain over the past week with associated nausea and intractable vomiting in the past 24 hours. She went to the clinic 7-8 months ago initially and was treated with a 10 day course of Cipro without much improvement. She performs martial arts regularly and thought the ache was due to a pulled muscle. She went to a resort in [facility] one week ago and began having severe right sided abdominal pain with an associated fever of 102 and N/ V. She was seen by a physician at the resort and given an injection and started on Cipro which improved the vomiting. She states she was careful to only eat cooked food and avoided drinking any water. Last night the pain worsened and she vomited once and today she has had intractable nonbloody bilious vomiting 10+ times. She reports the abdominal pain is worse with movement and after vomiting. She denies any worsening or improvement after a meal. She denies any heartburn. She reports normal BM yesterday. She denies any recent fever or chills. She denies any hematuria, dysuria, diarrhea, constipation, hematochezia or melena. She has not had a menstrual cycle in 2 years. She reports a previous h/o cervical cancer s/p cryosurgery. CT of the abdomen/pelvis obtained in the ED reveals mild prominence of the intrahepatic biliary system, distal common bile duct measuring 9mm dilated tubular structure in the right adnexa, poorly visualized appendix and no free air or free fluid and no findings to indicate bowel obstruction. Follow up pelvic US was normal. Pelvic exam in ED normal except for small amount of white vaginal discharge. Wet prep negative. CBC/BMP: 10/12/16 0418 10/13/16 0615 Significant Findings Laboratory Tests Test 10/11/16 10/12/16 10/13/16 10/13/16 18:45 04:18 06:15 12:00 Troponin I LESS THAN 0.02 NG/ML (0.02-0.05) Sodium Level 146 MEQ/L (136-145) Chloride Level 112 MEQ/L 111 MEQ/L (98-107) (98-107) Random Glucose 72 MG/DL (74-106) Calcium Level 8.2 MG/DL 8.4 MG/DL (8.5-10.1) (8.5-10.1) Aspartate Amino Transf 255 U/L (15-37) 101 U/L (15-37) (AST/SGOT) Alanine Aminotransferase 273 U/L (10-53) 192 U/L (10-53) (ALT/SGPT) Alkaline Phosphatase 150 U/L 143 U/L (45-117) (45-117) Total Protein 5.3 GM/DL 5.6 GM/DL (6.4-8.2) (6.4-8.2) Albumin 2.9 GM/DL 3.1 GM/DL (3.4-5.0) (3.4-5.0) Percent Iron Saturation 16.9 % (20-50) Test 10/14/16 06:54 Aspartate Amino Transf 44 U/L (15-37) (AST/SGOT) Alanine Aminotransferase 146 U/L (10-53) (ALT/SGPT) Alkaline Phosphatase 146 U/L (45-117) Total Protein 6.3 GM/DL (6.4-8.2) Imaging Last Impressions GI Procedure 10/13/16 0000 Signed Impressions: Service Date/Time: September 08:06 - CONCLUSION: ERCP as above. Robin Tracy MD Cholangiopancreatography MRI 10/12/16 0000 Signed Impressions: Service Date/Time: Wednesday, October 12, 2016 08:28 - CONCLUSION: Mild dilatation of the biliary system. This may reflect a reservoir phenomenon following cholecystectomy. No filling defect is seen. Robin Call MD Abdomen/Pelvis CT 10/11/16 0849 Signed Impressions: Service Date/Time: Tuesday, October 11, 2016 11:35 - CONCLUSION: 1. There is a dilated tubular structure in the right adnexa probably representing a hydrosalpinx. Tubo-ovarian abscess cannot be excluded however I do not see significant inflammatory changes. 2. The appendix is not definitively visualized however, there are no inflammatory changes adjacent to cecum. 3. No free air or free fluid identified. No findings to indicate bowel obstruction. 4. Mild intrahepatic and extrahepatic bile or ductal dilation. Curt Ventura MD Pelvis Ultrasound 10/11/16 0000 Signed Impressions: Service Date/Time: Tuesday, October 11, 2016 13:24 - CONCLUSION: 1. Normal pelvic sonogram. Jesus White MD PE at Discharge GENERAL: Well-developed well-nourished. In no acute distress. SKIN: Warm and dry. No lesions noted. HEENT: Normocephalic. Pupils equal and round. Mucous membranes pink and moist. CARDIOVASCULAR: Regular rate and rhythm. No murmur appreciated. RESPIRATORY: No accessory muscle use. Clear to auscultation. Breath sounds equal bilaterally. GASTROINTESTINAL: Abdomen soft, nondistended. RLQ TTP. Decreased Bowel sounds. MUSCULOSKELETAL: No obvious deformities. No clubbing or cyanosis. No edema. NEUROLOGICAL: Awake and alert. No focal neurological deficits. Moves upper and lower extremities spontaneously. Normal speech. PSYCHIATRIC: Appropriate mood and affect; insight and judgment normal. Pt update on day of discharge Feels better. Tolerates healthy heart diet. No n/v/d/c. Still with some abd pain. Hospital Course 50 yo female with PMHX of fibromyalgia and degenerative disc disease who has had a prior cholecystectomy and tubal ligation who presents to [facility] ED with complaints of right sided abdominal pain for the past 7-8 months that has increased in severity over the past week. Right sided abdominal pain: Secondary to possible gynecologic mass vs gastroparesis/opioid use vs biliary obstruction vs other Reviewed: CT abd/pelvis reveals mild prominence of the intrahepatic biliary system, distal common bile duct measuring 9mm dilated tubular structure in the right adnexa, poorly visualized appendix. Pelvic US essentially unremarkable. Afebrile. White count is normal. UA not indicative of UTI. Normal bilirubin. Elevation of AST, ALT, alkaline phosphatase; improving. Vaginal exam performed in the ED which showed no clue cells, Trichomonas, yeast, chlamydia, or diarrhea. MRCP showed moderate dilation of the biliary system. ERCP showed mild gastritis. - Consulted GI, performed ERCP, reportedly stone fragments removed - Consulted gynecology, doubts [facility] etiology, recommended outpatient follow- up up, cleared from [facility] perspective - Zofran prn N/V - pain management with Toradol - Diet per GI - IVF - Protonix and Carafate ordered - Counseled regarding narcotic and marijuana use, although doubt gastroparesis with infrequency of use Fibromyalgia and DDD lumbar spine - Soma prn - Tylenol prn - Tramadol prn DVT prophylaxis - Bilateral EYAL/SCDs Patient improved. She was able to tolerate diet. Discussed with GI , cleared patient for DC. To follow up as OP with PCP and consultants. Pt Condition on Discharge: Stable Discharge Disposition: Discharge Home Discharge Time: > 30 minutes Discharge Instructions DIET: Follow Instructions for: Heart Healthy Diet Activities you can perform: Regular-No Restrictions Follow up Referrals: Gastroenterology - 2 Weeks @ [facility] - 2 Weeks PCP Follow-up - 3-5 Days New Medications: Oxycodone (Oxycodone) 5 Mg Cap 5 MG PO Q6H PRN PAIN #10 Ref 0 CAP Pantoprazole (Pantoprazole) 40 Mg Tab 40 MG PO DAILY Reflux #30 Ref 0 TAB Sucralfate Liq (Sucralfate Liq) 1 Gm/10 Ml Dolores 1 GM PO ACHS gerd #120 BOTTLE Continued Medications: Carisoprodol (Soma) 250 Mg Tab 150 MG PO QID PRN PAIN Ref 0 TAB Diazepam (Valium) 2 Mg Tab Unknown Dose PO BID PRN ANXIETY Ref 0 TAB Hydrocodone-Acetaminophen (Vicodin) 5-300 Mg Tab 1 TAB PO Q4H PRN PAIN Ref 0 TAB Janna Tena MD Oct 14, 2016 11:28
--- NOTE | 2016-10-14 11:47 | HHI.GIFU ---
Subjective Remarks Sitting up in bed. States she is feeling much better and hoping to go home today. No n/v. Mild RUQ tenderness, states improved and is anxious to eat and go home. Objective Vitals I&O Vital Signs Date Time Temp Pulse Resp B/P Pulse Ox O2 Delivery O2 Flow Rate FiO2 10/14/16 10:11 98 10/14/16 07:27 96.6 77 17 129/71 99 10/14/16 05:00 96.4 68 18 114/69 95 10/13/16 22:45 96.1 74 16 101/70 96 10/13/16 20:00 96.9 66 18 132/79 99 10/13/16 16:35 96.6 65 18 126/81 96 10/13/16 15:09 97.6 62 16 120/72 99 I/O 10/13/16 10/13/16 10/13/16 10/14/16 10/14/16 10/14/16 07:00 15:00 23:00 07:00 15:00 23:00 Intake Total 750 ml 400 ml 829 ml 240 ml Balance 750 ml 400 ml 829 ml 240 ml Intake Oral 480 ml 240 ml IV Total 750 ml 100 ml 349 ml Other 300 ml # Voids 1 8 2 # Bowel Movements 0 0 Laboratory Laboratory Tests Test 10/13/16 10/14/16 12:00 06:54 Iron Level 57 Total Iron Binding Capacity 337 Percent Iron Saturation 16.9 Ferritin 118 Tumor Marker Alpha Fetoprotein 2.6 Total Bilirubin 0.6 Direct Bilirubin 0.1 Indirect Bilirubin 0.5 Aspartate Amino Transf 44 (AST/SGOT) Alanine Aminotransferase 146 (ALT/SGPT) Alkaline Phosphatase 146 Total Protein 6.3 Albumin 3.4 Lipase 186 Imaging Last Impressions GI Procedure 10/13/16 0000 Signed Impressions: Service Date/Time: September 08:06 - CONCLUSION: ERCP as above. Robin Tracy MD Cholangiopancreatography MRI 10/12/16 0000 Signed Impressions: Service Date/Time: Wednesday, October 12, 2016 08:28 - CONCLUSION: Mild dilatation of the biliary system. This may reflect a reservoir phenomenon following cholecystectomy. No filling defect is seen. Robin Call MD Abdomen/Pelvis CT 10/11/16 0849 Signed Impressions: Service Date/Time: Tuesday, October 11, 2016 11:35 - CONCLUSION: 1. There is a dilated tubular structure in the right adnexa probably representing a hydrosalpinx. Tubo-ovarian abscess cannot be excluded however I do not see significant inflammatory changes. 2. The appendix is not definitively visualized however, there are no inflammatory changes adjacent to cecum. 3. No free air or free fluid identified. No findings to indicate bowel obstruction. 4. Mild intrahepatic and extrahepatic bile or ductal dilation. Curt Ventura MD Pelvis Ultrasound 10/11/16 0000 Signed Impressions: Service Date/Time: Tuesday, October 11, 2016 13:24 - CONCLUSION: 1. Normal pelvic sonogram. Jesus White MD Physical Exam HEENT: Normocephalic; atraumatic; no jaundice. CHEST: CTA CARDIAC: RRR ABDOMEN: Soft, nondistended, mild RUQ tender; no hepatosplenomegaly; bowel sounds are present in all four quadrants. EXTREMITIES: No clubbing, cyanosis, or edema. SKIN: Normal; no rash; no jaundice. CHAIRMAN: No focal deficits; alert and oriented times three. Assessment and Plan Plan ASSESSMENT: - Abdominal pain. Pt reports intermittent RLQ pain described as sharp pain radiating to back x 7 months. This last episode began last Monday, while in [place]. She has chills, but denies any fevers/diarrhea. Denies suspicious food/sick contacts. She was seen by resort physician and started on Flagyl. She has continued to have pain and therefore came to the ER for further evaluation. Abdomen/Pelvis CT (10/11/16)-----> 1. There is a dilated tubular structure in the right adnexa probably representing a hydrosalpinx. Tubo-ovarian abscess cannot be excluded however I do not see significant inflammatory changes. 2. The appendix is not definitively visualized however , there are no inflammatory changes adjacent to cecum. 3. No free air or free fluid identified. No findings to indicate bowel obstruction. 4. Mild intrahepatic and extrahepatic bile or ductal dilation. Her pain is in her RLQ, which correlates with the abnormal fallopian tube. EGD (10/12/16----> Gastritis and GERD with possible Barretts. Pathology pending. She had worsening LFTs and therefore MRCP was performed (10/12/16)----> Mild dilatation of the biliary system. This may reflect a reservoir phenomenon following cholecystectomy. No filling defect is seen. Her LFTs continued to rise and therefore she had ERCP with sphincterotomy and sweeping the duct with balloon (10/14/16)----> EGD limited exam normal, ampulla normal, possible stricture, common bile duct dilation, no filling defects. Now, her lfts are improving, lipase is normal, and she is clinically doing much better and wanting to go home. Will advance diet and if she tolerates this, it is okay for her to d/c home with GI FU. - Nausea, ? related to above process. No hx of PUD. IMPROVED - Hydrosalpinx right. CT with dilated tubular structure in the right adnexa probably representing a hydrosalpinx. Tubo-ovarian abscess cannot be excluded however I do not see significant inflammatory changes. She had cervical cancer when she was [age] that was treated with cryosurgery. She does report a small amount vaginal discharge since starting cipro, but states she always has a little bit of thick white vaginal discharge while on cipro. Pelvis Ultrasound (10/11/16)----> 1. Normal pelvic sonogram. Clue cells, trichomonas, and yeast not seen. She has a hx of tubal ligation 30 years ago. 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 Martínez's behalf Elizabeth Gold Oct 14, 2016 11:47
[2016-10-14 11:54] VITALS: BP 141/62; PULSE 73; RESP 17; TEMP 96.7; O2SAT 99
[2016-10-14] MEDS ORDERED: SUCR1S PO (12:21)
[2016-10-14] MEDS ORDERED: PANT40TA3 PO (12:21)
[2016-10-14] MEDS ORDERED: OXYC1CAP PO (12:50)
[2016-10-14 15:49] LABS: ANA SCREEN NEG (NEG)
[2016-10-17 23:52] LABS: MITOCHONDRIAL ABS LESS THAN 20.0 U (())
== END 2016-10-14 14:02 | disposition home or self-care (01) ==
LOC: NEPE 08:23 → NEDA 16:28 → NEPFCDU 17:31 → N06B 10-13 16:39
PROVIDERS: ADMIT Hospitalist; ATTEND Hospitalist
DX: R10.11 Right upper quadrant pain (principal); K29.00 Acute gastritis without bleeding; K21.9 Gastro-esophageal reflux disease without esophagitis; K83.8 Other specified diseases of biliary tract; R79.89 Other specified abnormal findings of blood chemistry; N70.11 Chronic salpingitis; R11.14 Bilious vomiting; M79.7 Fibromyalgia; M51.36 Other intervertebral disc degeneration, lumbar region; Z85.41 Personal history of malignant neoplasm of cervix uteri; Z98.51 Tubal ligation status
CPT/HCPCS: 00740; 43239; 43262; 74177; 74181; 74330; 76377; 76830; 76856; 80053; 80074; 80076; 80307; 81001; 82103; 82105; 82390; 82550; 82728; 83520; 83540; 83550; 83690; 84484; 85025; 85610; 85730; 86038; 86256; 87210; 87491; 87591; 88305; 88312; 96374; 96375; 96376; 99285; C1769; C9113; G0378; J0780; J1100; J2175; J2250; J2270; J2405; J2710; J3010; J7030; Q9967